=== PATIENT | female | born 1995 | race African-American/Black ===

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

== ENCOUNTER 2017-04-03 23:35 | Emergency (ER) | payer OTHER ==
[2017-04-04] VITALS: BP 107/70; PULSE 98; TEMP 99.8; BMI 24.9
--- NOTE | 2017-04-04 01:52 | PDOC ---
History of Present Illness <Lani Kent - Last Filed: 04/04/17 03:57> - General History Source: Patient, Old Records Exam Limitations: No Limitations - History of Present Illness Initial Comments: 04/04/17 04:24 Patient is a 21 year old female, A1, with a significant past medical history of bipolar disorder, who presents to the ED with complaints of lower abdominal pain and vaginal bleeding that began last night while at home. Patient reports experiencing diffuse lower abdominal pain that she states is a constant sharp pain that is a 10/10 in intensity. She reports vaginal bleeding is an intermittent bleeding that contains clots and is noticeably heavier than her normal menstrual cycles. She reports having recent vaginal full term delivery in December 2016, stating she has returned to her normal menstrual period cycle, stating her last one was in the beginning of March. Patient reports experiencing intermittent episodes of nausea but denies any active vomiting, causing her develop a decreased appetite out of fever of vomiting. She reports currently being sexually active with one partner. Denies chest pain, Sob. Denies vomiting. Denies fevers, chills. Denies dysuria, hematuria, constipation, diarrhea. Denies contact with sick individuals, out of state travelling. Denies any other symptoms. Allergies: None Social history: No smoking. No alcohol. No illicit drugs. Surgical history: None PMD: None <Sourav Monte - Last Filed: 04/04/17 04:25> - General Chief Complaint: Pain, Acute Stated Complaint: STOMACH PAIN Time Seen by Provider: 04/04/17 00:43 Past History - Past Medical History Asthma: Yes (last used albuterol 2 mos ago) Cancer: No Cardiac Disorders: No COPD: No Diabetes: No HTN: No Psychiatric Problems: Yes (BIPOLAR) Seizures: No Thyroid Disease: No - Reproductive History (#): 0 - Immunization History Immunization Up to Date: Yes - Suicide/Smoking/Psychosocial Hx Smoking Status: No Smoking History: Current some day smoker Have you smoked in the past 12 months: No Number of Cigarettes Smoked Daily: 3 Information on smoking cessation initiated: No 'Breaking Loose' booklet given: 08/03/16 Hx Alcohol Use: No Drug/Substance Use Hx: No Substance Use Type: None Hx Substance Use Treatment: No <Lani Kent - Last Filed: 04/04/17 03:57> <Sourav Monte - Last Filed: 04/04/17 04:25> - Past Medical History Allergies/Adverse Reactions: Allergies Allergy/AdvReac Type Severity Reaction Status Date / Time No Known Allergies Allergy Verified 04/03/17 23:56 Home Medications: Ambulatory Orders Nitrofurantoin Monohyd/M-Cryst [Macrobid -] 100 mg PO BID #14 capsule 04/04/17 Review of Systems - Review of Systems Able to Perform ROS?: No Comments:: 04/04/17 04:24 Unable to obtain, patient eloped before attending was able to perform examination. <Sourav Monte - Last Filed: 04/04/17 04:25> *Physical Exam - Vital Signs Last Vital Signs Temp Pulse Resp BP Pulse Ox 99.8 F H 98 H 22 107/70 100 04/03/17 23:57 04/03/17 23:57 04/03/17 23:57 04/03/17 23:57 04/03/17 23:57 <Lani Kent - Last Filed: 04/04/17 03:57> - Vital Signs Last Vital Signs Temp Pulse Resp BP Pulse Ox 99.8 F H 98 H 22 107/70 100 04/03/17 23:57 04/03/17 23:57 04/03/17 23:57 04/03/17 23:57 04/03/17 23:57 - Physical Exam Comments: 04/04/17 04:25 Unable to obtain, patient eloped before attending was able to perform examination. <Sourav Monte - Last Filed: 04/04/17 04:25> ED Treatment Course - LABORATORY CBC & Chemistry Diagram: 04/04/17 02:20 04/04/17 02:20 <Lani Kent - Last Filed: 04/04/17 03:57> - LABORATORY CBC & Chemistry Diagram: 04/04/17 02:20 04/04/17 02:20 - ADDITIONAL ORDERS Additional order review: Laboratory Results 04/04/17 04/04/17 04/04/17 02:20 02:20 01:55 PT with INR 12.80 H INR 1.13 Sodium 138 Potassium 3.9 Chloride 105 Carbon Dioxide 24 Anion Gap 9 BUN 19 H Creatinine 0.8 Creat Clearance w eGFR > 60 Random Glucose 82 Calcium 9.1 Total Bilirubin 1.4 H D AST 20 ALT 38 Alkaline Phosphatase 84 Total Protein 8.1 Albumin 4.1 Urine Color Yellow Urine Appearance Slcloudy Urine pH 5.0 D Ur Specific [place] 1.026 Urine Protein Negative Urine Glucose (UA) Negative Urine Ketones Negative Urine Blood 2+ H Urine Nitrite Positive Urine Bilirubin Negative Urine Urobilinogen Negative Ur Leukocyte Esterase Trace Urine WBC (Auto) 13 Urine RBC (Auto) 29 Ur Epithelial Cells Rare Urine Bacteria Rare Urine Mucus Many Urine HCG, Qual 04/04/17 01:55 PT with INR INR Sodium Potassium Chloride Carbon Dioxide Anion Gap BUN Creatinine Creat Clearance w eGFR Random Glucose Calcium Total Bilirubin AST ALT Alkaline Phosphatase Total Protein Albumin Urine Color Urine Appearance Urine pH Ur Specific [place] Urine Protein Urine Glucose (UA) Urine Ketones Urine Blood Urine Nitrite Urine Bilirubin Urine Urobilinogen Ur Leukocyte Esterase Urine WBC (Auto) Urine RBC (Auto) Ur Epithelial Cells Urine Bacteria Urine Mucus Urine HCG, Qual Negative 04/04/17 02:20 RBC 5.06 D MCV 68.2 L MCHC 31.3 L RDW 20.8 H D MPV 7.7 Neutrophils % 80.3 Lymphocytes % 12.8 Monocytes % 5.0 Eosinophils % 1.4 D Basophils % 0.5 <Sourav Monte - Last Filed: 04/04/17 04:25> *DC/Admit/Observation/Transfer <Lani Kent - Last Filed: 04/04/17 03:57> - Attestations Scribe Attestion: 04/04/17 04:25 Documentation prepared by Sourav Monte, acting as medical sonographer for Lani Kent MD/DO. <Sourav Monte - Last Filed: 04/04/17 04:25> Diagnosis at time of Disposition: Abdominal pain - Discharge Dispostion Disposition: ELOPED Condition at time of disposition: Stable - Prescriptions Prescriptions: Nitrofurantoin Monohyd/M-Cryst [Macrobid -] 100 mg PO BID #14 capsule
[2017-04-04 02:05] LABS: URINE APPEARANCE SLCLOUDY; URINE BILIRUBIN NEGATIVE (NEGATIVE); URINE BLOOD 2+ (NEGATIVE); URINE COLOR YELLOW; URINE GLUCOSE (UA) NEGATIVE (NEGATIVE); URINE KETONE NEGATIVE (NEGATIVE); URINE LEUK ESTERASE TRACE (NEGATIVE); URINE NITRITE POSITIVE (NEGATIVE); URINE PROTEIN NEGATIVE (NEGATIVE); URINE UROBILINOGEN NEGATIVE mg/dL (0.2-1.0)
[2017-04-04 02:11] LABS: EPI CELLS RARE /HPF (FEW); URINE BACTERIA RARE /hpf (NONE SEEN); URINE MUCUS MANY
[2017-04-04 02:36] LABS: BASO % 0.5 % (0-2.0); EOS % 1.4 % (0-4.5); HEMATOCRIT 34.5 % (32.4-45.2); HEMOGLOBIN 10.8 GM/dL (10.7-15.3); LYMPH % 12.8 % (8-40); MCH 21.4 pg (25.7-33.7); MCHC 31.3 g/dl (32.0-36.0); MEAN CELL VOLUME 68.2 fl (80-96); MEAN PLT VOLUME 7.7 fl (7.5-11.1); NEUT % 80.3 % (42.8-82.8); PLATELET COUNT 337 K/MM3 (134-434); RBC 5.06 M/mm3 (3.60-5.2); RDW 20.8 % (11.6-15.6); WHITE BLOOD COUNT 9.5 K/mm3 (4.0-10.0)
[2017-04-04 02:40] LABS: ADD RBC MORPHOLOGY YES
[2017-04-04 02:49] LABS: INR 1.13 (0.82-1.09); PROTHROMBIN TIME (PATIENT) 12.8 SEC (9.98-11.88)
[2017-04-04 02:58] LABS: ALBUMIN 4.1 g/dl (3.4-5.0); ANION GAP 9 (8-16); BILIRUBIN,TOTAL 1.4 mg/dL (0.2-1.0); BLOOD UREA NITROGEN 19 mg/dL (7-18); CALCIUM 9.1 mg/dL (8.5-10.1); CHLORIDE 105 mmol/L (98-107); CO2 24 mmol/L (21-32); CREATININE 0.8 mg/dL (0.55-1.02); GLUCOSE,RANDOM 82 mg/dL (74-106); POTASSIUM 3.9 mmol/L (3.5-5.1); SGOT/AST 20 U/L (15-37); SGPT/ALT 38 U/L (12-78); SODIUM 138 mmol/L (136-145); TOT PROT 8.1 g/dl (6.4-8.2)
[2017-04-04 02:59] LABS: ALK PHOS 84 U/L (45-117)
[2017-04-04 09:22] LABS: ANISOCYTOSIS 1+; PLATELET ESTIMATE ADEQUATE
== END 2017-04-04 03:51 | disposition left against medical advice (07) ==
LOC: JER 23:35
DX: R10.84 Generalized abdominal pain (principal)
CPT/HCPCS: 36415; 80053; 81003; 81015; 84703; 85025; 85610; 99282-25

== ENCOUNTER 2017-07-22 11:12 | Emergency (ER) | payer OTHER ==
[2017-07-22 11:19] VITALS: TEMP 98.1; BMI 23.8
--- NOTE | 2017-07-22 12:00 | PDOC ---
History of Present Illness - General Chief Complaint: Pain, Acute Stated Complaint: ABD PAIN Time Seen by Provider: 07/22/17 12:00 - History of Present Illness Initial Comments: 07/22/17 12:23 Ms. Estes is a 21 yo female w/ no significant pmh who presents for evaluation of 3 day history of abdominal pain. She reports she had initially presented to [facility] for evaluation but left AMA when she was feeling better. She reports the pain has been intermittent over the last few days and she decided to present today when it became unbearable and she also started experiencing minimal vaginal spotting. She describes the pain as waxing and waning and says it is worse in the RLQ. The patient denies chest pain, shortness of breath, headache and dizziness. Denies fever, chills, nausea, vomit, diarrhea and constipation. Denies dysuria, frequency, urgency and hematuria. Allergies: NKDA Past History - Past Medical History Allergies/Adverse Reactions: Allergies Allergy/AdvReac Type Severity Reaction Status Date / Time No Known Allergies Allergy Verified 07/22/17 11:17 Home Medications: Ambulatory Orders Nitrofurantoin Monohyd/M-Cryst [Macrobid -] 100 mg PO BID #14 capsule 04/04/17 Doxycycline Hyclate 100 mg PO BID #28 tablet 07/22/17 Asthma: Yes (last used albuterol 2 mos ago) Cancer: No Cardiac Disorders: No COPD: No Diabetes: No HTN: No Psychiatric Problems: Yes (BIPOLAR) Seizures: No Thyroid Disease: No - Reproductive History (#): 0 - Immunization History Immunization Up to Date: Yes - Suicide/Smoking/Psychosocial Hx Smoking Status: No Smoking History: Never smoked Have you smoked in the past 12 months: No Number of Cigarettes Smoked Daily: 3 Information on smoking cessation initiated: No 'Breaking Loose' booklet given: 08/03/16 Hx Alcohol Use: No Drug/Substance Use Hx: No Substance Use Type: None Hx Substance Use Treatment: No Review of Systems - Review of Systems Comments:: 07/22/17 12:27 GENERAL/CONSTITUTIONAL: No fever or chills. No weakness. HEAD, EYES, EARS, NOSE AND THROAT: No change in vision. No ear pain or discharge. No sore throat. CARDIOVASCULAR: No chest pain or shortness of breath RESPIRATORY: No cough, wheezing, or hemoptysis. GASTROINTESTINAL: +Abdominal pain as described. No nausea, vomiting, diarrhea or constipation. GENITOURINARY: No dysuria, frequency, or change in urination. MUSCULOSKELETAL: No joint or muscle swelling or pain. No neck or back pain. SKIN: No rash NEUROLOGIC: No headache, vertigo, loss of consciousness, or change in strength/ sensation. ENDOCRINE: No increased thirst. No abnormal weight change HEMATOLOGIC/LYMPHATIC: No anemia, easy bleeding, or history of blood clots. ALLERGIC/IMMUNOLOGIC: No hives or skin allergy. *Physical Exam - Vital Signs Last Vital Signs Temp Pulse Resp BP Pulse Ox 98.1 F 100 H 18 122/67 100 07/22/17 11:18 07/22/17 11:18 07/22/17 11:18 07/22/17 11:18 07/22/17 11:18 - Physical Exam Comments: 07/22/17 12:28 GENERAL: Awake, alert, and fully oriented, in no acute distress HEAD: No signs of trauma, normocephalic, atraumatic EYES: PERRLA, EOMI, sclera anicteric, conjunctiva clear ENT: Auricles normal inspection, hearing grossly normal, nares patent, oropharynx clear without exudates. Moist mucosa NECK: Normal ROM, supple, no lymphadenopathy, JVD, or masses LUNGS: No distress, speaks full sentences, clear to auscultation bilaterally HEART: Regular rate and rhythm, normal S1 and S2, no murmurs, rubs or gallops, peripheral pulses normal and equal bilaterally. ABDOMEN: Soft, nontender, normoactive bowel sounds. No guarding, no rebound. No masses EXTREMITIES: Normal inspection, Normal range of motion, no edema. No clubbing or cyanosis. NEUROLOGICAL: Cranial nerves II through XII grossly intact. Normal speech, normal gait, no focal sensorimotor deficits SKIN: Warm, Dry, normal turgor, no rashes or lesions noted. : No CMT, no adnexal tenderness. Scant blood/purulent fluid noted around cervical os. Os closed. ED Treatment Course - LABORATORY CBC & Chemistry Diagram: 07/22/17 13:03 07/22/17 13:03 Medical Decision Making - Medical Decision Making 07/22/17 12:32 Ms. Estes is a 21 yo female w/ pmh as described who presents for evaluation of abdominal pain. History plus exam concerning for septic vs. appendicitis vs. PID. Workup begun with blood drawn for possible pre-op, urine for evaluation of /GC/UTI, and morphine/fluids given for symptomatic relief. 07/22/17 15:31 Patient labs significant for UTI and elevated WBC as below. US negative for acute process. Treating patient empirically for PID and discharging to home. Patient verbalized understanding and agreement and will comply. Laboratory Results - last 24 hr 07/22/17 07/22/17 07/22/17 12:51 12:57 13:03 WBC 12.6 H D RBC 4.61 Hgb 10.9 Hct 34.3 MCV 74.4 L MCH 23.7 L D MCHC 31.8 L RDW 18.3 H Plt Count 320 MPV 7.8 Absolute Neuts (auto) 10.6 Neutrophils % 84.1 H Lymphocytes % 8.0 D Monocytes % 6.8 Eosinophils % 0.7 Basophils % 0.4 Nucleated RBC % 0 PT with INR 12.30 INR 1.09 PTT (Actin FS) 30.2 Sodium Potassium Chloride Carbon Dioxide Anion Gap BUN Creatinine Creat Clearance w eGFR Random Glucose Lactic Acid 0.7 Calcium Total Bilirubin AST ALT Alkaline Phosphatase Total Protein Albumin Urine Color Urine Appearance Urine pH Ur Specific [place] Urine Protein Urine Glucose (UA) Urine Ketones Urine Blood Urine Nitrite Urine Bilirubin Urine Urobilinogen Ur Leukocyte Esterase Urine WBC (Auto) Urine RBC (Auto) Ur Epithelial Cells Urine Mucus Urine HCG, Qual Blood Type Antibody Screen 07/22/17 07/22/17 07/22/17 13:03 13:03 13:03 WBC RBC Hgb Hct MCV MCH MCHC RDW Plt Count MPV Absolute Neuts (auto) Neutrophils % Lymphocytes % Monocytes % Eosinophils % Basophils % Nucleated RBC % PT with INR INR PTT (Actin FS) Sodium 138 Potassium 4.2 Chloride 105 Carbon Dioxide 25 Anion Gap 8 BUN 12 Creatinine 0.8 Creat Clearance w eGFR > 60 Random Glucose 78 Lactic Acid Calcium 9.1 Total Bilirubin 1.1 H D AST 22 ALT 25 Alkaline Phosphatase 68 Total Protein 7.7 Albumin 4.1 Urine Color Yellow Urine Appearance Clear Urine pH 6.0 Ur Specific [place] 1.021 Urine Protein Negative Urine Glucose (UA) Negative Urine Ketones Negative Urine Blood 2+ H Urine Nitrite Negative Urine Bilirubin Negative Urine Urobilinogen 2.0 H Ur Leukocyte Esterase Trace Urine WBC (Auto) 2 Urine RBC (Auto) 23 Ur Epithelial Cells Rare Urine Mucus Rare Urine HCG, Qual Negative Blood Type Antibody Screen 07/22/17 13:03 WBC RBC Hgb Hct MCV MCH MCHC RDW Plt Count MPV Absolute Neuts (auto) Neutrophils % Lymphocytes % Monocytes % Eosinophils % Basophils % Nucleated RBC % PT with INR INR PTT (Actin FS) Sodium Potassium Chloride Carbon Dioxide Anion Gap BUN Creatinine Creat Clearance w eGFR Random Glucose Lactic Acid Calcium Total Bilirubin AST ALT Alkaline Phosphatase Total Protein Albumin Urine Color Urine Appearance Urine pH Ur Specific [place] Urine Protein Urine Glucose (UA) Urine Ketones Urine Blood Urine Nitrite Urine Bilirubin Urine Urobilinogen Ur Leukocyte Esterase Urine WBC (Auto) Urine RBC (Auto) Ur Epithelial Cells Urine Mucus Urine HCG, Qual Blood Type O POSITIVE Antibody Screen Negative *DC/Admit/Observation/Transfer Diagnosis at time of Disposition: PID (acute pelvic inflammatory disease) - Discharge Dispostion Disposition: HOME - Prescriptions Prescriptions: Doxycycline Hyclate 100 mg PO BID #28 tablet - Referrals Referrals: Monica Escobar MD [Primary Care Provider] - - Patient Instructions Printed Discharge Instructions: DI for Pelvic Inflammatory Disease Additional Instructions: Return to ER if any return of pain, fever, chills, or other concerning symptoms. Take all medications as proscribed and follow-up with primary care provider for further evaluation. - Post Discharge Activity
--- NOTE | 2017-07-22 12:13 | PDOC ---
Attending Attestation - HPI HPI: 07/22/17 12:40 The patient is a 21 year old female with a significant past medical history of UTIS who presents to the emergency department for evaluation of abdominal pain. The patient reports intermittent episodes of moderate abdominal pain for 3 days. She reports unbearable abdominal pain today with minimal vaginal bleeding which prompted her to visit the emergency room today. Of note, the patient reports leaving AMA at [facility] yesterday for similar symptoms. The patient denies chest pain, shortness of breath, headache, and dizziness. Denies fevers, chills, nausea, vomiting, diarrhea, and constipation. Denies dysuria, frequency, urgency, and hematuria. Allergies: NKA Social history: No reported cigarette, alcohol, or drug use. PCP: Dr. Escobar ([phone]) <Ravi Serrato - Last Filed: 07/22/17 12:40> - Resident Resident Name: Gaudencio Pham - ED Attending Attestation I have performed the following: I have examined & evaluated the patient, The case was reviewed & discussed with the resident, I agree w/resident's findings & plan, Exceptions are as noted - Physicial Exam PE: GENERAL: Awake, alert, and fully oriented, in no acute distress HEAD: No signs of trauma EYES: PERRLA, EOMI, sclera anicteric, conjunctiva clear ENT: Auricles normal inspection, hearing grossly normal, nares patent, oropharynx clear without exudates. Moist mucosa NECK: Normal ROM, supple, no lymphadenopathy, JVD, or masses LUNGS: Breath sounds equal, clear to auscultation bilaterally. No wheezes, and no crackles HEART: Regular rate and rhythm, normal S1 and S2, no murmurs, rubs or gallops ABDOMEN: Soft, +suprapubic tenderness, normoactive bowel sounds. +Guarding, no rebound. No masses EXTREMITIES: Normal range of motion, no edema. No clubbing or cyanosis. No cords, erythema, or tenderness NEUROLOGICAL: Cranial nerves II through XII grossly intact. Normal speech, normal gait. Motor and sensation intact. SKIN: Warm, Dry, normal turgor, no rashes or lesions noted. - Medical Decision Making Pt with lower abd pain, found to have purulent vaginal discharge. Will treat for PID. GC/Chlam pending. Counseled her to avoid intercourse unless her test is negative or she completes treatment. <Jennifer Sanderson - Last Filed: 07/22/17 15:37> Attestations - Attestations Documentation prepared by Ravi Serrato, acting as medical lab technician for Jennifer Sanderson MD. <Ravi Serrato - Last Filed: 07/22/17 12:40>
[2017-07-22] MEDS ORDERED: SODIUM CHLORIDE 1,000 ML IV STA (12:15)
[2017-07-22] MEDS ORDERED: morphine CARPU-JECT 2 MG/1 ML DISP.SYRIN IVPUSH ONE (12:16)
[2017-07-22] MEDS ORDERED: morphine CARPU-JECT 2 MG/1 ML DISP.SYRIN ONE (12:24)
[2017-07-22] MEDS ORDERED: ACETAMINOPHEN INJECTION 100 ML IVPB ONE (12:47)
[2017-07-22] MEDS ORDERED: ACETAMINOPHEN 1000 MG/100 ML VIAL (NON FORMULARY) IVPB ONE (12:47)
[2017-07-22 13:08] LABS: BASO % 0.4 % (0-2.0); EOS % 0.7 % (0-4.5); HEMATOCRIT 34.3 % (32.4-45.2); HEMOGLOBIN 10.9 GM/dL (10.7-15.3); MCH 23.7 pg (25.7-33.7); MCHC 31.8 g/dl (32.0-36.0); MEAN CELL VOLUME 74.4 fl (80-96); MEAN PLT VOLUME 7.8 fl (7.5-11.1); MONO % 6.8 % (3.8-10.2); NEUT % 84.1 % (42.8-82.8); PLATELET COUNT 320 K/MM3 (134-434); RBC 4.61 M/mm3 (3.60-5.2); RDW 18.3 % (11.6-15.6); WHITE BLOOD COUNT 12.6 K/mm3 (4.0-10.0)
[2017-07-22 13:21] LABS: URINE APPEARANCE CLEAR; URINE BILIRUBIN NEGATIVE (<2.0 mg/dL); URINE BLOOD 2+ (NEGATIVE); URINE COLOR YELLOW; URINE GLUCOSE (UA) NEGATIVE (NEGATIVE); URINE KETONE NEGATIVE (NEGATIVE); URINE LEUK ESTERASE TRACE (NEGATIVE); URINE NITRITE NEGATIVE (NEGATIVE); URINE PROTEIN NEGATIVE (NEGATIVE)
[2017-07-22 13:21] LABS: INR 1.09 (0.82-1.09); PROTHROMBIN TIME (PATIENT) 12.3 SEC (9.7-13.0)
[2017-07-22 13:24] LABS: ACTIVATED PTT 30.2 SECONDS (26.9-34.4)
[2017-07-22 13:30] LABS: EPI CELLS RARE /HPF (FEW); URINE MUCUS RARE
[2017-07-22] MEDS ORDERED: DOXYCYCLINE HYCLATE 100 MG CAPSULE PO ONE ×2 (13:33→14:07)
[2017-07-22 13:37] LABS: ALBUMIN 4.1 g/dl (3.4-5.0); ALK PHOS 68 U/L (45-117); ANION GAP 8 (8-16); BILIRUBIN,TOTAL 1.1 mg/dL (0.2-1.0); BLOOD UREA NITROGEN 12 mg/dL (7-18); CALCIUM 9.1 mg/dL (8.5-10.1); CHLORIDE 105 mmol/L (98-107); CO2 25 mmol/L (21-32); CREATININE 0.8 mg/dL (0.55-1.02); GLUCOSE,RANDOM 78 mg/dL (74-106); POTASSIUM 4.2 mmol/L (3.5-5.1); SGOT/AST 22 U/L (15-37); SGPT/ALT 25 U/L (12-78); SODIUM 138 mmol/L (136-145); TOT PROT 7.7 g/dl (6.4-8.2)
[2017-07-22] MEDS ORDERED: cefTRIAXone SODIUM 1 GM VIAL ONE (14:07)
[2017-07-22 15:36] VITALS: BP 120/65; PULSE 94
== END 2017-07-22 15:43 | disposition home or self-care (01) ==
LOC: JER 11:12
PROC: 3E033NZ Introduction of Analgesics, Hypnotics, Sedatives into Peripheral Vein, Percutaneous Approach (ICD-10-PCS; principal; 2017-07-22)
PROC: 3E02329 Introduction of Other Anti-infective into Muscle, Percutaneous Approach (ICD-10-PCS; 2017-07-22)
PROC: 3E0337Z Introduction of Electrolytic and Water Balance Substance into Peripheral Vein, Percutaneous Approach (ICD-10-PCS; 2017-07-22)
DX: N73.9 Female pelvic inflammatory disease, unspecified (principal)
CPT/HCPCS: 36415; 76830-TC; 80053; 81003; 81015; 83605; 84703; 85025; 85610; 85730; 86850; 86900; 86901; 87086; 87491; 87591; 99283-25; J0131; J7030

== ENCOUNTER 2018-08-25 11:11 | Emergency (ER) | payer OTHER ==
[2018-08-25 11:27] VITALS: BP 110/58; PULSE 16; TEMP 99.5; BMI 23.8
[2018-08-25] MEDS ORDERED: ACETAMINOPHEN 325 MG TABLET (FP) PO ONE (13:21)
[2018-08-25] MEDS ORDERED: DEXAMETHASONE LIQUID 0.5 MG/5 ML 240 ML BULK BOTTLE PO ONE (13:21)
--- NOTE | 2018-08-25 13:23 | PDOC ---
History of Present Illness - General Chief Complaint: Sore Throat Stated Complaint: SORE THROAT Time Seen by Provider: 08/25/18 12:17 History Source: Patient Exam Limitations: No Limitations Past History - Travel Traveled outside of the country in the last 30 days: No Close contact w/someone who was outside of country & ill: No - Past Medical History Allergies/Adverse Reactions: Allergies Allergy/AdvReac Type Severity Reaction Status Date / Time No Known Allergies Allergy Verified 08/25/18 11:27 Home Medications: Ambulatory Orders Ibuprofen 600 mg PO Q6H #30 tablet 08/25/18 Asthma: Yes (last used albuterol 2 mos ago) Cancer: No Cardiac Disorders: No COPD: No Diabetes: No HTN: No Psychiatric Problems: Yes (BIPOLAR) Seizures: No Thyroid Disease: No - Reproductive History (#): 0 - Immunization History Immunization Up to Date: Yes - Suicide/Smoking/Psychosocial Hx Smoking Status: No Smoking History: Never smoked Have you smoked in the past 12 months: No Number of Cigarettes Smoked Daily: 3 'Breaking Loose' booklet given: 08/03/16 Hx Alcohol Use: Yes (OCCASIONALLY) Drug/Substance Use Hx: No Substance Use Type: None Hx Substance Use Treatment: No Review of Systems - Review of Systems Able to Perform ROS?: Yes Comments:: 08/25/18 13:26 CONSTITUTIONAL: Absent: fever, chills, diaphoresis, generalized weakness, malaise, loss of appetite HEENT: Present: sore throat Absent: rhinorrhea, nasal congestion, throat swelling, difficulty swallowing, mouth swelling, ear pain, eye pain, visual Changes RESPIRATORY: Absent: cough, shortness of breath, dyspnea with exertion, orthopnea, wheezing, stridor, hemoptysis MUSCULOSKELETAL: Absent: myalgia, arthralgia, joint swelling SKIN: Absent: rash, itching, pallor NEUROLOGIC: Absent: headache, focal weakness or paresthesias, dizziness, unsteady gait, seizure, mental status changes, bladder or bowel incontinence PSYCHIATRIC: Absent: anxiety, depression, suicidal or homicidal ideation, hallucinations. Is the patient limited Maltese proficient: No *Physical Exam - Vital Signs Last Vital Signs Temp Pulse Resp BP Pulse Ox 99.5 F 16 L 90 H 110/58 L 98 08/25/18 11:24 08/25/18 11:24 08/25/18 11:24 08/25/18 11:24 08/25/18 11:24 - Physical Exam Comments: 08/25/18 13:27 GENERAL: The patient is awake, alert, and fully oriented, in no acute distress. HEAD: Normal with no signs of trauma. EYES: Pupils equal, round and reactive to light, extraocular movements intact, sclera anicteric, conjunctiva clear. HEENT: No nasal congestion or rhinorrhea. No sinus Tenderness. Mucous membranes are moist. (+) tonsillar erythema. No exudate or edema. Petechia noted to the top of the soft palate. Uvula is midline. No TM bulging, dullness or erythema. NECK: Neck is supple. No adenopathy. No meningismus. No stridor. EXTREMITIES: Normal range of motion, no edema. NEUROLOGICAL: Normal speech, normal gait. PSYCH: Normal mood, normal affect. SKIN: Warm, Dry, normal turgor, no rashes or lesions noted. Medical Decision Making - Medical Decision Making 08/25/18 13:28 The patient is a 22-year-old female with no past medical history presents to the ER today with 3 days of sore throat. She states that it hurts to swallow. She also admits to associated nausea. Denies fevers, chills, cough, vomiting, diarrhea, urinary symptoms. A/P: Pharyngitis On exam patient with erythema to the posterior pharynx with petechiae noted to the soft palate. Rapid strep was obtained and is negative. 10 mg of Decadron given for pain We will discharge home with symptomatic relief and PCP follow-up. Most likely a viral pharyngitis I discussed the physical exam findings, ancillary test results and final diagnoses with the patient. I answered all of the patient's questions. The patient was satisfied with the care received and felt comfortable with the discharge plan and treatment plan. The Patient agrees to follow up with the primary care physician/specialist within 24-72 hours. Return precautions were given. *DC/Admit/Observation/Transfer Diagnosis at time of Disposition: Pharyngitis Qualifiers: Pharyngitis/tonsillitis etiology: unspecified etiology Qualified Code(s): J02.9 - Acute pharyngitis, unspecified - Discharge Dispostion Disposition: HOME Condition at time of disposition: Stable Decision to Admit order: No - Prescriptions Prescriptions: Ibuprofen 600 mg PO Q6H #30 tablet - Referrals Referrals: Marino Pizarro MD [Primary Care Provider] - - Patient Instructions Printed Discharge Instructions: DI for Pharyngitis/Tonsillopharyngitis -- Adult Additional Instructions: You have a sore throat or pharyngitis. Rapid strep testing was negative today. You may take Motrin 600 mg every 6 hours as needed for pain. Please do warm water gargles and cough drops to help with your pain. Change your toothbrush when you started feeling better. Follow-up with your primary care doctor. Return to the ER for fever, difficulty breathing, difficulty swallowing, or if you have any changes in your symptoms. - Post Discharge Activity Forms/Work/School Notes: Back to Work
[2018-08-25] MEDS ORDERED: DEXAMETHASONE SOD PHOSPHATE 10 MG/1 ML VIAL ONE (13:24)
== END 2018-08-25 13:28 | disposition home or self-care (01) ==
LOC: JERFT 11:11
DX: J02.9 Acute pharyngitis, unspecified (principal); J45.909 Unspecified asthma, uncomplicated; F31.9 Bipolar disorder, unspecified
CPT/HCPCS: 87070; 87880; 99281-25

== ENCOUNTER 2018-10-04 13:38 | Emergency (ER) | payer OTHER ==
--- NOTE | 2018-10-04 13:51 | PDOC ---
Rapid Medical Evaluation Chief Complaint: Pain Time Seen by Provider: 10/04/18 13:50 Medical Evaluation: Allergies Allergy/AdvReac Type Severity Reaction Status Date / Time No Known Allergies Allergy Verified 08/25/18 11:27 10/04/18 13:51 I have performed a brief in-person evaluation of this patient. The patient presents with a chief complaint of: intermittent cramping lower abd pains with N/v. LMP 08/18. Denies fever, chills Pertinent physical exam findings: A&O x 3 I have ordered the following: cbc,cmp, hcg, UA, Ucx The patient will proceed to the ED for further evaluation. 10/04/18 13:54 Discharge Disposition - Diagnosis Abdominal pain Qualifiers: Abdominal location: unspecified location Qualified Code(s): R10.9 - Unspecified abdominal pain - Discharge Dispostion Condition at time of disposition: Stable Last Admission D/C Date: 12/20/16 - Referrals Referrals: Marino Pizarro MD [Primary Care Provider] - - Patient Instructions - Post Discharge Activity
[2018-10-04 14:23] VITALS: BP 114/78; PULSE 60; TEMP 98.6; BMI 25.0
[2018-10-04] MEDS ORDERED: ONDANSETRON *ODT* 4 MG TABLET SL ONE (14:24)
[2018-10-04] MEDS ORDERED: ONDANSETRON *ODT* 4 MG TABLET ONE (14:55)
[2018-10-04 15:02] LABS: EOS % 1.7 % (0-4.5); HEMATOCRIT 37.6 % (32.4-45.2); HEMOGLOBIN 12.1 GM/dL (10.7-15.3); LYMPH % 40.3 % (8-40); MCH 28.6 pg (25.7-33.7); MCHC 32.2 g/dl (32.0-36.0); MEAN CELL VOLUME 89.1 fl (80-96); MEAN PLT VOLUME 8.5 fl (7.5-11.1); MONO % 6.9 % (3.8-10.2); NEUT % 50.1 % (42.8-82.8); PLATELET COUNT 265 K/MM3 (134-434); RBC 4.22 M/mm3 (3.60-5.2); RDW 17.6 % (11.6-15.6); WHITE BLOOD COUNT 5.1 K/mm3 (4.0-10.0)
[2018-10-04 15:20] LABS: ALBUMIN 3.8 g/dl (3.4-5.0); BLOOD UREA NITROGEN 20.2 mg/dL (7-18); CALCIUM 9.1 mg/dL (8.5-10.1); POTASSIUM 4.4 mmol/L (3.5-5.1)
--- NOTE | 2018-10-04 15:28 | PDOC ---
History of Present Illness - General Chief Complaint: Pain Stated Complaint: ABD. PAIN/ VOMITING Time Seen by Provider: 10/04/18 13:50 History Source: Patient Exam Limitations: No Limitations - History of Present Illness Travel History: No Initial Comments: 10/04/18 15:28 22-year-old female presents to ED with complaints of intermittent nausea for the past week, irregular menses which she states is her baseline, and now with mid suprapubic cramping since this morning. Patient assumed that she was so took a Plan B on Tuesday (5 days ago). Patient any urinary or bowel complaints. Patient denies fever, chills recent travel, but states did have a UTI approximately 2 weeks ago and completed antibiotics which she cannot recall. Timing/Duration: reports: constant Quality: reports: mild, cramping Abdominal Pain Onset Location: reports: suprapubic (mid) Pain Radiation: reports: no radiation Activities at Onset: reports: none Aggravating Factors: improves with: None Alleviating Factors: improves with: None Past History - Travel Traveled outside of the country in the last 30 days: No Close contact w/someone who was outside of country & ill: No - Past Medical History Allergies/Adverse Reactions: Allergies Allergy/AdvReac Type Severity Reaction Status Date / Time No Known Allergies Allergy Verified 10/04/18 13:52 Home Medications: Ambulatory Orders Ibuprofen 600 mg PO Q6H #30 tablet 08/25/18 Ondansetron [Zofran *Odt*] 4 mg SL TID PRN #21 od.tablet 10/04/18 Asthma: Yes (last used albuterol 2 mos ago) Cancer: No Cardiac Disorders: No COPD: No Diabetes: No HTN: No Psychiatric Problems: Yes (BIPOLAR) Seizures: No Thyroid Disease: No - Reproductive History (#): 0 - Immunization History Immunization Up to Date: Yes - Suicide/Smoking/Psychosocial Hx Smoking Status: No Smoking History: Never smoked Have you smoked in the past 12 months: No Number of Cigarettes Smoked Daily: 3 Information on smoking cessation initiated: No 'Breaking Loose' booklet given: 08/03/16 Hx Alcohol Use: No Drug/Substance Use Hx: No Substance Use Type: None Hx Substance Use Treatment: No Patient Lives Alone: No Lives with/in: spouse/SO (boyfriend) Review of Systems - Review of Systems Able to Perform ROS?: Yes Constitutional: No: Symptoms Reported HEENTM: No: Symptoms Reported Respiratory: No: Symptoms reported Cardiac (ROS): No: Symptoms Reported ABD/GI: Yes: Nausea, Abdominal cramping : No: Symptoms Reported Musculoskeletal: No: Symptoms Reported Integumentary: No: Symptoms Reported Neurological: No: Symptoms reported Endocrine: No: Symptoms Reported Hematologic/Lymphatic: No: Symptoms Reported *Physical Exam - Vital Signs Last Vital Signs Temp Pulse Resp BP Pulse Ox 98.6 F 60 18 114/78 100 10/04/18 13:49 10/04/18 13:49 10/04/18 13:49 10/04/18 13:49 10/04/18 13:49 - Physical Exam General Appearance: Yes: Nourished, Appropriately Dressed. No: Apparent Distress HEENT: negative: Pale Conjunctivae Neck: positive: Normal Thyroid Respiratory/Chest: positive: Lungs Clear, Normal Breath Sounds. negative: Respiratory Distress, Accessory Muscle Use Cardiovascular: positive: Regular Rhythm, Regular Rate. negative: Murmur Gastrointestinal/Abdominal: positive: Soft, Tenderness (mild midsuprapubic) Musculoskeletal: negative: CVA Tenderness Extremity: positive: Normal Inspection Integumentary: positive: Normal Color, Warm, Moist Neurologic: positive: Motor Strength 5/5 (ambulatory) ED Treatment Course - LABORATORY CBC & Chemistry Diagram: 10/04/18 14:48 10/04/18 14:33 - ADDITIONAL ORDERS Additional order review: Laboratory Results 10/04/18 14:33 Sodium 143 Potassium 4.4 Chloride 108 H Carbon Dioxide 27 Anion Gap 8 BUN 20.2 H Creatinine 1.0 Est GFR (CKD-EPI)AfAm 93.92 Est GFR (CKD-EPI)NonAf 81.04 Random Glucose 83 Calcium 9.1 Total Bilirubin 1.0 AST 30 ALT 28 Alkaline Phosphatase 66 Total Protein 7.0 Albumin 3.8 10/04/18 14:48 RBC 4.22 MCV 89.1 MCHC 32.2 RDW 17.6 H MPV 8.5 Neutrophils % 50.1 D Lymphocytes % 40.3 H D Monocytes % 6.9 Eosinophils % 1.7 D Basophils % 1.0 - Medications Given in the ED: ED Medications Discontinued Medications Generic Name Dose Route Start Last Admin Trade Name Freq PRN Reason Stop Dose Admin Ondansetron HCl 4 mg 10/04/18 14:24 10/04/18 15:19 Zofran Odt - SL 10/04/18 14:25 4 mg ONCE ONE Administration Medical Decision Making - Medical Decision Making 10/04/18 15:01 CC: intermittent nausea x 1 week, lower abd cramping since this am Exam: mild midsuprapucic tenderness, vss, no cva tenderness Plan: urine, labs, zofran 10/04/18 15:34 Laboratory Tests 10/04/18 10/04/18 14:33 14:48 WBC 5.1 Hgb 12.1 Hct 37.6 Absolute Neuts (auto) 2.6 Lymphocytes % 40.3 H D Sodium 143 Potassium 4.4 Chloride 108 H Carbon Dioxide 27 Anion Gap 8 BUN 20.2 H Creatinine 1.0 Est GFR (CKD-EPI)NonAf 81.04 Random Glucose 83 Calcium 9.1 Total Bilirubin 1.0 AST 30 ALT 28 Alkaline Phosphatase 66 Total Protein 7.0 Albumin 3.8 *DC/Admit/Observation/Transfer Diagnosis at time of Disposition: Nausea Abdominal pain Qualifiers: Abdominal location: unspecified location Qualified Code(s): R10.9 - Unspecified abdominal pain - Discharge Dispostion Disposition: HOME Condition at time of disposition: Stable - Prescriptions Prescriptions: Ondansetron [Zofran *Odt*] 4 mg SL TID PRN #21 od.tablet PRN Reason: Nausea And/Or Vomiting - Referrals Referrals: Marino Pizarro MD [Primary Care Provider] - - Patient Instructions Additional Instructions: Rest, drink lots of fluids: Teas, water, soups Sonia imelda, carbonated beverages for the bubbles May try peppermint teas Avoid heavy , spicy or fatty foods until symptoms have resolved Avoid contact with others until symptoms resolved Lots of handwashing and good hygiene Continue [id number] medications for symptomatic relief Tylenol or Motrin for fever and pain May use Zofran-one tablet dissolved on tongue as needed for nauseousness. May repeat times one every 8 hours Followup with private physician in one to 2 days as needed Return to emergency department for worsened symptoms, fevers, dehydration - Post Discharge Activity Forms/Work/School Notes: Back to Work
[2018-10-04 16:19] LABS: PH,URINE 6.5 (5.0-8.0); URINE APPEARANCE CLEAR; URINE BILIRUBIN NEGATIVE (NEGATIVE); URINE COLOR YELLOW; URINE GLUCOSE (UA) NEGATIVE (NEGATIVE); URINE KETONE TRACE (NEGATIVE); URINE LEUK ESTERASE NEGATIVE (NEGATIVE); URINE NITRITE NEGATIVE (NEGATIVE); URINE PROTEIN NEGATIVE (NEGATIVE)
--- NOTE | 2018-10-04 16:51 | PDOC ---
*Physical Exam - Vital Signs Last Vital Signs Temp Pulse Resp BP Pulse Ox 98.6 F 60 18 114/78 100 10/04/18 13:49 10/04/18 13:49 10/04/18 13:49 10/04/18 13:49 10/04/18 13:49 - Physical Exam General Appearance: Yes: Appropriately Dressed. No: Apparent Distress Neck: positive: Trachea midline. negative: Supple Respiratory/Chest: positive: Lungs Clear, Normal Breath Sounds. negative: Respiratory Distress, Accessory Muscle Use Cardiovascular: positive: Regular Rhythm, Regular Rate, S1, S2. negative: Edema , Murmur Gastrointestinal/Abdominal: positive: Normal Bowel Sounds, Soft. negative: Tender Musculoskeletal: positive: Normal Inspection. negative: CVA Tenderness ED Treatment Course - LABORATORY CBC & Chemistry Diagram: 10/04/18 14:48 10/04/18 14:33 - ADDITIONAL ORDERS Additional order review: Laboratory Results 10/04/18 10/04/18 10/04/18 15:35 15:35 14:33 Sodium 143 Potassium 4.4 Chloride 108 H Carbon Dioxide 27 Anion Gap 8 BUN 20.2 H Creatinine 1.0 Est GFR (CKD-EPI)AfAm 93.92 Est GFR (CKD-EPI)NonAf 81.04 Random Glucose 83 Calcium 9.1 Total Bilirubin 1.0 AST 30 ALT 28 Alkaline Phosphatase 66 Total Protein 7.0 Albumin 3.8 Urine Color Yellow Urine Appearance Clear Urine pH 6.5 Ur Specific [place] 1.037 H Urine Protein Negative Urine Glucose (UA) Negative Urine Ketones Trace H Urine Blood Negative Urine Nitrite Negative Urine Bilirubin Negative Urine Urobilinogen 1.0 Ur Leukocyte Esterase Negative Urine HCG, Qual Negative 10/04/18 14:48 RBC 4.22 MCV 89.1 MCHC 32.2 RDW 17.6 H MPV 8.5 Neutrophils % 50.1 D Lymphocytes % 40.3 H D Monocytes % 6.9 Eosinophils % 1.7 D Basophils % 1.0 - Medications Given in the ED: ED Medications Discontinued Medications Generic Name Dose Route Start Last Admin Trade Name Freq PRN Reason Stop Dose Admin Ondansetron HCl 4 mg 10/04/18 14:24 10/04/18 15:19 Zofran Odt - SL 10/04/18 14:25 4 mg ONCE ONE Administration Progress Note - Progress Note Progress Note: Received sign out from CARLOS Hilton. Briefly this is a 22-year-old woman with 1 week of intermittent nausea and lower abdominal cramping. Patient reports having irregular menses which is her baseline. Patient reports her last menstrual period was in July for that she may be took plan B5 days ago. Patient denies any dysuria, hematuria, fevers, chills, vaginal bleeding and was recently treated for UTI. Blood testing is unremarkable. Urine is pending at time of sign out Medical Decision Making - Medical Decision Making 10/04/18 17:04 Urinalysis with trace ketones but not suggestive of UTI. Urine testing is negative. Patient reports she had negative gonorrhea and chlamydia testing approximately 2 weeks ago with her primary doctor and is refusing testing at this time. Given benign abdominal exam, I will discharge patient home with prescription for Zofran and instructions to follow-up with her primary doctor for reevaluation. 10/04/18 17:06 I discussed the physical exam findings, ancillary test results and final diagnoses with the patient. I answered all of the patient's questions. The patient was satisfied with the care received and felt comfortable with the discharge plan and treatment plan. The patient will call their primary care physician within 24 hours to arrange follow-up and will return to the Emergency Department with any new, persistent or worsening symptoms. *DC/Admit/Observation/Transfer Diagnosis at time of Disposition: Nausea Abdominal pain Qualifiers: Abdominal location: unspecified location Qualified Code(s): R10.9 - Unspecified abdominal pain - Discharge Dispostion Disposition: HOME Condition at time of disposition: Stable Decision to Admit order: No - Prescriptions Prescriptions: Ondansetron [Zofran *Odt*] 4 mg SL TID PRN #21 od.tablet PRN Reason: Nausea And/Or Vomiting - Referrals Referrals: Marino Pizarro MD [Primary Care Provider] - - Patient Instructions Additional Instructions: Rest, drink lots of fluids: Teas, water, soups Sonia imelda, carbonated beverages for the bubbles May try peppermint teas Avoid heavy , spicy or fatty foods until symptoms have resolved Avoid contact with others until symptoms resolved Lots of handwashing and good hygiene Continue nvrh-[id number] medications for symptomatic relief Tylenol or Motrin for fever and pain May use Zofran-one tablet dissolved on tongue as needed for nauseousness. May repeat times one every 8 hours Followup with private physician in one to 2 days as needed Return to emergency department for worsened symptoms, fevers, dehydration - Post Discharge Activity Forms/Work/School Notes: Back to Work
== END 2018-10-04 17:15 | disposition home or self-care (01) ==
LOC: JER 13:38
DX: R10.9 Unspecified abdominal pain (principal); R11.0 Nausea; J45.909 Unspecified asthma, uncomplicated
CPT/HCPCS: 36415; 80053; 81003; 84703; 85025; 87086; 99283-25; Q0162

== ENCOUNTER 2018-11-02 16:13 | Emergency (ER) | payer OTHER ==
[2018-11-02 16:58] VITALS: BP 97/70; PULSE 56; TEMP 98.5; BMI 252.9
--- NOTE | 2018-11-02 16:59 | PDOC ---
Rapid Medical Evaluation Chief Complaint: Pain Time Seen by Provider: 11/02/18 16:55 Medical Evaluation: Allergies Allergy/AdvReac Type Severity Reaction Status Date / Time No Known Allergies Allergy Verified 11/02/18 16:54 11/02/18 16:55 Pt presents for lower abdominal pain for 1 night and admits to nausea. Unsure of status. LMP 09/25/18. Pt is usually regular. Denies urinary symptoms. Exam: discomfort of the suprapubic area, LLQ Orders: urine Pt to proceed to the er for further evaluation Discharge Disposition - Diagnosis Abdominal pain Qualifiers: Abdominal location: lower abdomen, unspecified Qualified Code(s): R10.30 - Lower abdominal pain, unspecified - Referrals Referrals: Marino Pizarro MD [Primary Care Provider] - - Patient Instructions - Post Discharge Activity
--- NOTE | 2018-11-02 17:33 | PDOC ---
History of Present Illness - General Chief Complaint: Pain Stated Complaint: ABD PAIN Time Seen by Provider: 11/02/18 16:55 - History of Present Illness Initial Comments: 11/02/18 17:32 CHIEF COMPLAINT: HISTORY OF PRESENT ILLNESS: No recent travel or sick contacts. PAST MEDICAL HISTORY: Denies past medical history FAMILY HISTORY: Denies SOCIAL HISTORY: Lives at home with ____. Occupation: . Denies tobacco, alcohol, illicit drug use. SURGICAL HISTORY: Denies ALLERGIES: No known drug allergies REVIEW OF SYSTEMS General/Constitutional: Denies fever or chills. Denies weakness, weight change. HEENT: Denies change in vision. Denies ear pain or discharge. Denies sore throat. Cardiovascular: Denies chest pain or shortness of breath. Respiratory: Denies cough, wheezing, or hemoptysis. Gastrointestinal: Denies nausea, vomiting, diarrhea or constipation. Denies rectal bleeding. Genitourinary: Denies dysuria, frequency, or change in urination. Musculoskeletal: Denies joint or muscle swelling or pain. Denies neck or back pain. Skin and breasts: Denies rash or easy bruising. Neurologic: Denies headache, vertigo, loss of consciousness, or loss of sensation. Psychiatric: Denies depression or anxiety. Endocrine: Denies increased thirst. Denies abnormal weight change. Hematologic/Lymphatic: Denies anemia, easy bleeding, or history of blood clots. Allergic/Immunologic: Denies hives or skin allergy. Denies latex allergy. PHYSICAL EXAM General Appearance: Well-appearing, appropriately dressed. No apparent distress , no intoxication. HEENT: EOMI, PERRLA, normal ENT inspection, normal voice, TMs normal, pharynx normal. No conjunctival pallor. No photophobia, scleral icterus. Neck: Supple. Trachea midline. No tenderness, rigidity, carotid bruit, stridor , lymphadenopathy, or thyromegaly. Respiratory/Chest: Lungs CTAB. No shortness of breath, chest tenderness, respiratory distress, accessory muscle use. No crackles, rales, rhonchi, stridor , wheezing, dullness Cardiovascular: RRR. S1, S2. No JVD, murmur, bradycardia, tachycardia. Vascular Pulses: Dorsalis-Pedis (R): 2+, Dorsalis-Pedis (L): 2+ Gastrointestinal/Abdominal: Normal bowel sounds. Abdomen soft, non-distended. No tenderness or rebound tenderness. No organomegaly, pulsatile mass, guarding , hernia, hepatomegaly, splenomegaly. Lymphatic: No adenopathy, tenderness. Musculoskeletal/Extremities: Normal inspection. FROM of all extremities, normal capillary refill. Pelvis Stable. No CVA tenderness. No tenderness to extremities, pedal edema, swelling, erythema or deformity. Integumentary: Appropriate color, dry, warm. No cyanosis, erythema, jaundice or rash Neurologic: manager rental II-XII intact. Fully oriented, alert. Appropriate mood/affect. Motor strength 5/5. No appreciable EOM palsy, facial droop or sensory deficit. Past History - Past Medical History Allergies/Adverse Reactions: Allergies Allergy/AdvReac Type Severity Reaction Status Date / Time No Known Allergies Allergy Verified 11/02/18 16:54 Home Medications: Ambulatory Orders Ibuprofen 600 mg PO Q6H #30 tablet 08/25/18 Ondansetron [Zofran *Odt*] 4 mg SL TID PRN #21 od.tablet 10/04/18 Asthma: Yes (last used albuterol 2 mos ago) Cancer: No Cardiac Disorders: No COPD: No Diabetes: No HTN: No Psychiatric Problems: Yes (BIPOLAR) Seizures: No Thyroid Disease: No - Reproductive History (#): 0 Para: 1 - Immunization History Immunization Up to Date: Yes - Suicide/Smoking/Psychosocial Hx Smoking Status: No Smoking History: Never smoked Have you smoked in the past 12 months: No Number of Cigarettes Smoked Daily: 3 Information on smoking cessation initiated: No 'Breaking Loose' booklet given: 08/03/16 Hx Alcohol Use: No Drug/Substance Use Hx: No Substance Use Type: None Hx Substance Use Treatment: No *Physical Exam - Vital Signs Last Vital Signs Temp Pulse Resp BP Pulse Ox 98.5 F 56 L 17 97/70 100 11/02/18 16:55 11/02/18 16:55 11/02/18 16:55 11/02/18 16:55 11/02/18 16:55 *DC/Admit/Observation/Transfer Diagnosis at time of Disposition: Abdominal pain Qualifiers: Abdominal location: lower abdomen, unspecified Qualified Code(s): R10.30 - Lower abdominal pain, unspecified - Referrals Referrals: Marino Pizarro MD [Primary Care Provider] - - Patient Instructions - Post Discharge Activity
--- NOTE | 2018-11-04 00:17 | PDOC ---
*Physical Exam - Vital Signs Last Vital Signs Temp Pulse Resp BP Pulse Ox 98.5 F 56 L 17 97/70 100 11/02/18 16:55 11/02/18 16:55 11/02/18 16:55 11/02/18 16:55 11/02/18 16:55 - Physical Exam Comments: 11/04/18 00:17 Patient left ER prior to my evaluation. *DC/Admit/Observation/Transfer Diagnosis at time of Disposition: Eloped from emergency department Abdominal pain Qualifiers: Abdominal location: lower abdomen, unspecified Qualified Code(s): R10.30 - Lower abdominal pain, unspecified - Discharge Dispostion Disposition: ELOPED Condition at time of disposition: Unchanged/Unknown - Referrals Referrals: Marino Pizarro MD [Primary Care Provider] - - Patient Instructions - Post Discharge Activity
== END 2018-11-02 17:41 | disposition left against medical advice (07) ==
LOC: SUPCPDRO 16:13 → JER 16:13
DX: R10.30 Lower abdominal pain, unspecified (principal)
CPT/HCPCS: 99281-25

== ENCOUNTER 2018-11-09 14:29 | Emergency (ER) | payer OTHER ==
[2018-11-09 14:38] VITALS: BP 104/54; PULSE 77; TEMP 98.7; BMI 24.5
--- NOTE | 2018-11-09 14:44 | PDOC ---
Rapid Medical Evaluation Chief Complaint: Pain Time Seen by Provider: 11/09/18 14:36 Medical Evaluation: Allergies Allergy/AdvReac Type Severity Reaction Status Date / Time No Known Allergies Allergy Verified 11/02/18 16:54 Vital Signs Temp Pulse Resp BP Pulse Ox 98.7 F 77 17 104/54 L 99 11/09/18 14:35 11/09/18 14:35 11/09/18 14:35 11/09/18 14:35 11/09/18 14:35 11/09/18 14:42 22 year old female c/o LLQ pain, and nausea. patient reports that she has been tag2ksd irregular periods. unsure of PE: patient alert ox3. A: abdominal pain P; ua urine Discharge Disposition - Diagnosis Abdominal pain - Referrals - Patient Instructions - Post Discharge Activity
[2018-11-09] MEDS ORDERED: ONDANSETRON *ODT* 4 MG TABLET SL ONE (15:32)
--- NOTE | 2018-11-09 15:32 | PDOC ---
History of Present Illness - General History Source: Patient Exam Limitations: No Limitations - History of Present Illness Travel History: No Initial Comments: 11/09/18 15:19 Presents the emergency room with complaints of abdominal pain since last night with nausea and one episode of vomiting the same. Patient denies fever, chills, abdominal distention, diarrhea but does state irregular menses on a normal basis. She denies recent travel, recent illness or recent sick contacts. Timing/Duration: reports: constant Quality: reports: mild, cramping Abdominal Pain Onset Location: reports: suprapubic Pain Radiation: reports: no radiation Activities at Onset: reports: none Aggravating Factors: improves with: None Alleviating Factors: improves with: None <Pratima Hilton - Last Filed: 11/09/18 15:27> <Elsi Hinojosa - Last Filed: 11/11/18 20:10> - General Chief Complaint: Pain, Acute Stated Complaint: ABD PAIN Time Seen by Provider: 11/09/18 14:36 Past History - Travel Traveled outside of the country in the last 30 days: No Close contact w/someone who was outside of country & ill: No - Past Medical History Asthma: Yes (last used albuterol 2 mos ago) Cancer: No Cardiac Disorders: No COPD: No Diabetes: No HTN: No Psychiatric Problems: Yes (BIPOLAR) Seizures: No Thyroid Disease: No - Reproductive History (#): 0 Para: 1 - Immunization History Immunization Up to Date: Yes - Psycho Social/Smoking Cessation Hx Smoking Status: No Smoking History: Never smoked Have you smoked in the past 12 months: No Number of Cigarettes Smoked Daily: 3 Information on smoking cessation initiated: No 'Breaking Loose' booklet given: 08/03/16 Hx Alcohol Use: No Drug/Substance Use Hx: No Substance Use Type: None Hx Substance Use Treatment: No Patient Lives Alone: No Lives with/in: spouse/SO <Pratima Hilton - Last Filed: 11/09/18 15:27> <Elsi Hinojosa - Last Filed: 11/11/18 20:10> - Past Medical History Allergies/Adverse Reactions: Allergies Allergy/AdvReac Type Severity Reaction Status Date / Time No Known Allergies Allergy Verified 11/02/18 16:54 Home Medications: Ambulatory Orders Ibuprofen 600 mg PO Q6H #30 tablet 08/25/18 Ondansetron [Zofran *Odt*] 4 mg SL TID PRN #21 od.tablet 10/04/18 Ondansetron [Zofran Odt -] 4 mg SL TID PRN #12 od.tablet 11/09/18 Review of Systems - Review of Systems Able to Perform ROS?: Yes Constitutional: No: Symptoms Reported HEENTM: No: Symptoms Reported Respiratory: No: Symptoms reported Cardiac (ROS): No: Symptoms Reported ABD/GI: Yes: Nausea, Vomiting, Abdominal cramping : No: Symptoms Reported Musculoskeletal: No: Symptoms Reported Integumentary: No: Symptoms Reported Neurological: No: Symptoms reported Endocrine: No: Symptoms Reported Hematologic/Lymphatic: No: Symptoms Reported <rPatima Hilton - Last Filed: 11/09/18 15:27> *Physical Exam - Vital Signs Last Vital Signs Temp Pulse Resp BP Pulse Ox 98.7 F 77 17 104/54 L 99 11/09/18 14:35 11/09/18 14:35 11/09/18 14:35 11/09/18 14:35 11/09/18 14:35 - Physical Exam General Appearance: Yes: Nourished, Appropriately Dressed. No: Apparent Distress Cardiovascular: positive: Regular Rhythm, Regular Rate. negative: Murmur Gastrointestinal/Abdominal: positive: Soft, Tenderness (mild lt lower suprapubic tenderness) Extremity: positive: Normal Inspection Integumentary: positive: Normal Color, Warm, Moist Neurologic: positive: Motor Strength 5/5 (ambulatory) <Pratima Hilton - Last Filed: 11/09/18 15:27> - Vital Signs Last Vital Signs Temp Pulse Resp BP Pulse Ox 98.7 F 77 17 104/54 L 99 11/09/18 14:35 11/09/18 14:35 11/09/18 14:35 11/09/18 14:35 11/09/18 14:35 <Elsi Hinojosa - Last Filed: 11/11/18 20:10> ED Treatment Course - LABORATORY CBC & Chemistry Diagram: 11/09/18 17:28 11/09/18 17:28 - ADDITIONAL ORDERS Additional order review: Laboratory Results 11/09/18 11/09/18 15:32 15:32 Urine Color Yellow Urine Appearance Clear Urine pH 6.0 Ur Specific [place] 1.026 Urine Protein Negative Urine Glucose (UA) Negative Urine Ketones Negative Urine Blood Negative Urine Nitrite Negative Urine Bilirubin Negative Urine Urobilinogen 1.0 Ur Leukocyte Esterase Negative Urine HCG, Qual Positive 11/09/18 17:28 RBC 4.35 MCV 89.1 MCHC 32.1 RDW 16.9 H MPV 7.8 Neutrophils % 51.3 Lymphocytes % 38.7 Monocytes % 7.3 Eosinophils % 1.3 Basophils % 1.4 - Medications Given in the ED: ED Medications Discontinued Medications Generic Name Dose Route Start Last Admin Trade Name Freq PRN Reason Stop Dose Admin Ondansetron HCl 4 mg 11/09/18 15:32 11/09/18 15:20 Zofran Odt - SL 11/09/18 15:33 4 mg ONCE ONE Administration <Elsi Hinojosa - Last Filed: 11/11/18 20:10> Medical Decision Making - Medical Decision Making 11/09/18 15:34 CC: llq cramping since last night with 1 episode of nausea/vomiting this am. Pt states menses is normally irregular and LMP 8/11 Exam: mild LL suprapubic tenderness, vss'Plan: ua. upreg, <Pratima Hilton - Last Filed: 11/09/18 15:27> - Medical Decision Making The patient was seen and evaluated in conjunction with midlevel provider under my direct supervision, ancillary studies were reviewed. I agree with the plan as outlined ACCOUNTS RECEIVABLE PROCESSOR Lida HPI, workup/dispo as outlined. VS reviewed, wnl. anticipate discharge, pcp followup, return precautions 11/09/18 17:50 <Elsi Hinojosa - Last Filed: 11/11/18 20:10> Discharge <Pratima Hilton - Last Filed: 11/09/18 15:27> - Discharge Information Problems reviewed: Yes <Elsi Hinojosa - Last Filed: 11/11/18 20:10> - Discharge Information Clinical Impression/Diagnosis: Abdominal pain affecting Condition: Good Disposition: HOME - Additional Discharge Information Prescriptions: Ondansetron [Zofran Odt -] 4 mg SL TID PRN #12 od.tablet PRN Reason: Nausea - Follow up/Referral Referrals: Marino Pizarro MD [Primary Care Provider] - - Patient Discharge Instructions Additional Instructions: Take your vitamins. Keep well-hydrated. Make an appointment with your ADVERTISING ACCOUNT REPRESENTATIVE for reevaluation. Return to the emergency department immediately for severe pain, vaginal bleeding that requires more than 2 pads per hour or for any other symptoms. Thank you very much for choosing us to provide your emergent health care needs. - Post Discharge Activity
[2018-11-09] MEDS ORDERED: ONDANSETRON *ODT* 4 MG TABLET ONE (15:50)
[2018-11-09 16:33] LABS: URINE APPEARANCE CLEAR; URINE BILIRUBIN NEGATIVE (NEGATIVE); URINE COLOR YELLOW; URINE GLUCOSE (UA) NEGATIVE (NEGATIVE); URINE KETONE NEGATIVE (NEGATIVE); URINE LEUK ESTERASE NEGATIVE (NEGATIVE); URINE NITRITE NEGATIVE (NEGATIVE); URINE PROTEIN NEGATIVE (NEGATIVE)
--- NOTE | 2018-11-09 16:43 | PDOC ---
*Physical Exam - Vital Signs Last Vital Signs Temp Pulse Resp BP Pulse Ox 98.7 F 77 17 104/54 L 99 11/09/18 14:35 11/09/18 14:35 11/09/18 14:35 11/09/18 14:35 11/09/18 14:35 - Physical Exam General Appearance: Yes: Appropriately Dressed. No: Apparent Distress Gastrointestinal/Abdominal: positive: Normal Bowel Sounds, Tender (mild suprapubic), Soft Musculoskeletal: positive: Normal Inspection. negative: CVA Tenderness ED Treatment Course - LABORATORY CBC & Chemistry Diagram: 11/09/18 17:28 11/09/18 17:28 - ADDITIONAL ORDERS Additional order review: Laboratory Results 11/09/18 15:32 Urine Color Yellow Urine Appearance Clear Urine pH 6.0 Ur Specific [place] 1.026 Urine Protein Negative Urine Glucose (UA) Negative Urine Ketones Negative Urine Blood Negative Urine Nitrite Negative Urine Bilirubin Negative Urine Urobilinogen 1.0 Ur Leukocyte Esterase Negative - Medications Given in the ED: ED Medications Discontinued Medications Generic Name Dose Route Start Last Admin Trade Name Vaughn PRN Reason Stop Dose Admin Ondansetron HCl 4 mg 11/09/18 15:32 11/09/18 15:20 Zofran Odt - SL 11/09/18 15:33 4 mg ONCE ONE Administration ED Progress Note - Progress Note Progress Note: 11/09/18 16:43 Received signout from nurse practitioner Lida. Briefly this a 22-year-old woman presents emergency department for evaluation of mild suprapubic pain starting last night with nausea and one episode of vomiting. Patient with irregular menses. Urine is pending. Medical Decision Making - Medical Decision Making 11/09/18 17:17 A/P: 22-year-old woman with suprapubic pain and nausea Urinalysis is not suggestive of infection Urine testing is positive. Transvaginal ultrasound Laboratory testing included type and screen and beta hCG. 11/09/18 19:05 Ultrasound as read by Dr. Beck: Single live intrauterine with estimated sonographic gestational age 6 weeks 1 day. No heart rate likely due to pole size and early gestation. Close follow-up is recommended. Hypoechoic density in the left ovary measuring 2.2 x 1.3 cm likely representing hemorrhagic corpus luteum cyst. Rh+ Beta hCG 14,706. I will discharge the patient home to follow-up with her SENIOR NET DEVELOPER ARCHITECT for continued evaluation of . I discussed the physical exam findings, ancillary test results and final diagnoses with the patient. I answered all of the patient's questions. The patient was satisfied with the care received and felt comfortable with the discharge plan and treatment plan. The patient will call their primary care physician within 24 hours to arrange follow-up and will return to the Emergency Department with any new, persistent or worsening symptoms. Portions of this note have been documented using voice recognition software. As a result, errors may occur in the application support developer process. Effort has been made to correct all grammatical and application support developer error, but some may have been missed. Discharge - Discharge Information Problems reviewed: Yes Clinical Impression/Diagnosis: Abdominal pain affecting Condition: Fair Disposition: HOME - Admission No - Additional Discharge Information Prescriptions: Ondansetron [Zofran Odt -] 4 mg SL TID PRN #12 od.tablet PRN Reason: Nausea - Follow up/Referral Referrals: Marino Pizarro MD [Primary Care Provider] - - Patient Discharge Instructions Additional Instructions: Take your vitamins. Keep well-hydrated. Make an appointment with your NIGHT SUPERVISOR for reevaluation. Return to the emergency department immediately for severe pain, vaginal bleeding that requires more than 2 pads per hour or for any other symptoms. Thank you very much for choosing us to provide your emergent health care needs. - Post Discharge Activity
[2018-11-09 17:39] LABS: BASO % 1.4 % (0-2.0); EOS % 1.3 % (0-4.5); HEMATOCRIT 38.8 % (32.4-45.2); HEMOGLOBIN 12.5 GM/dL (10.7-15.3); LYMPH % 38.7 % (8-40); MCH 28.6 pg (25.7-33.7); MCHC 32.1 g/dl (32.0-36.0); MEAN CELL VOLUME 89.1 fl (80-96); MEAN PLT VOLUME 7.8 fl (7.5-11.1); MONO % 7.3 % (3.8-10.2); NEUT % 51.3 % (42.8-82.8); PLATELET COUNT 261 K/MM3 (134-434); RBC 4.35 M/mm3 (3.60-5.2); RDW 16.9 % (11.6-15.6)
[2018-11-09 18:08] LABS: BLOOD UREA NITROGEN 13.7 mg/dL (7-18); CALCIUM 8.8 mg/dL (8.5-10.1); CREATININE 0.8 mg/dL (0.55-1.3); POTASSIUM 4.2 mmol/L (3.5-5.1)
== END 2018-11-09 19:07 | disposition home or self-care (01) ==
LOC: JER 14:29 → SUPCPDRO 14:29 → JER 19:07
DX: O26.891 Other specified pregnancy related conditions, first trimester (principal); O34.81 Maternal care for other abnormalities of pelvic organs, first trimester; N83.12 Corpus luteum cyst of left ovary; Z3A.01 Less than 8 weeks gestation of pregnancy
CPT/HCPCS: 36415; 76817-TC; 80048; 81003; 84702; 84703; 85025; 86850; 86900; 86901; 99282-25; Q0162

== ENCOUNTER 2019-01-21 16:47 | Emergency (ER) | payer OTHER ==
[2019-01-21 16:52] VITALS: BMI 21.9
--- NOTE | 2019-01-21 17:11 | PDOC ---
History of Present Illness - General Chief Complaint: Pain Stated Complaint: 4 MONTHS /ABD/PAIN History Source: Patient - History of Present Illness Initial Comments: 01/21/19 17:02 Patient is a 23-year-old female LMP 09/24/18, who has OB care with Dr. Vargas has had first OB sono on 12/25/18 at 13-week (patient had songram pictures on hand), PMHX here with complaints of generalized abdominal pain since this morning. States that she has been having some nausea and vomiting today and vomited x2. Has not had much to drink all day. States she is currently not nauseous. States pain is generalized sharp stabbing, is constant 10/10, with no aggravating or alleviating factors. Denies vaginal bleeding, leakage of fluid or diarrhea. No sick contacts, no food contacts. PMD: Dr. Vargas PMHX: As above PSOCHX: neg cig, etoh, drug ALL: NKDA GENERAL/CONSTITUTIONAL: [No fever or chills. No weakness. No weight change.] HEAD, EYES, EARS, NOSE AND THROAT: [No change in vision. No ear pain or discharge. No sore throat.] CARDIOVASCULAR: [No chest pain or shortness of breath.] RESPIRATORY: [No cough, wheezing, or hemoptysis.] GASTROINTESTINAL: [(+) nausea, vomiting, (-) diarrhea or constipation. No rectal bleeding.] GENITOURINARY: [No dysuria, frequency, or change in urination.] MUSCULOSKELETAL: [No joint or muscle swelling or pain. No neck or back pain.] SKIN AND BREASTS: [No rash or easy bruising.] NEUROLOGIC: [No headache, vertigo, loss of consciousness, or loss of sensation.] PSYCHIATRIC: [No depression or anxiety.] ENDOCRINE: [No increased thirst. No abnormal weight change.] HEMATOLOGIC/LYMPHATIC: [No anemia, easy bleeding, or history of blood clots.] ALLERGIC/IMMUNOLOGIC: [No hives or skin allergy. No latex allergy.] GENERAL: [The patient is awake, alert, and fully oriented, in acute distress.] HEAD: [Normal with no signs of trauma.] EYES: [Pupils equal, round and reactive to light, extraocular movements intact, sclera anicteric, conjunctiva clear.] ENT: [Ears normal, nares patent, oropharynx clear without exudates. Moist mucous membranes.] NECK: [Normal range of motion, supple without lymphadenopathy, JVD, or masses.] LUNGS: [Breath sounds equal, clear to auscultation bilaterally. No wheezes, and no crackles.] HEART: [Regular rate and rhythm, normal S1 and S2 without murmur, rub.] ABDOMEN: [Soft, (+) generalized tenderness, normoactive bowel sounds. No guarding, no rebound. No masses.] PELVIC; refused pelvic exam EXTREMITIES: [Normal range of motion, no edema. No clubbing or cyanosis. No cords, erythema, or tenderness.] NEUROLOGICAL: [Cranial nerves II through XII grossly intact. Normal speech, normal gait.] PSYCH: [Normal mood, normal affect.] SKIN: [Warm, Dry, normal turgor, no rashes or lesions noted.] Past History - Past Medical History Allergies/Adverse Reactions: Allergies Allergy/AdvReac Type Severity Reaction Status Date / Time No Known Allergies Allergy Verified 01/21/19 16:52 Home Medications: Ambulatory Orders Ibuprofen 600 mg PO Q6H #30 tablet 08/25/18 Ondansetron [Zofran *Odt*] 4 mg SL TID PRN #21 od.tablet 10/04/18 Ondansetron [Zofran Odt -] 4 mg SL TID PRN #12 od.tablet 11/09/18 Asthma: Yes (last used albuterol 2 mos ago) Cancer: No Cardiac Disorders: No COPD: No Diabetes: No HTN: No Psychiatric Problems: Yes (BIPOLAR) Seizures: No Thyroid Disease: No - Reproductive History (#): 0 Para: 1 - Immunization History Immunization Up to Date: Yes - Psycho Social/Smoking Cessation Hx Smoking Status: No Smoking History: Never smoked Have you smoked in the past 12 months: No Number of Cigarettes Smoked Daily: 3 'Breaking Loose' booklet given: 08/03/16 Hx Alcohol Use: No Drug/Substance Use Hx: No Substance Use Type: None Hx Substance Use Treatment: No *Physical Exam - Vital Signs Last Vital Signs Temp Pulse Resp BP Pulse Ox 97.9 F 95 H 18 118/64 99 01/21/19 16:49 01/21/19 16:49 01/21/19 16:49 01/21/19 16:49 01/21/19 16:49 ED Treatment Course - LABORATORY CBC & Chemistry Diagram: 01/21/19 17:30 01/21/19 17:30 Medical Decision Making - Medical Decision Making 01/21/19 17:02 Patient is a 23-year-old female LMP 09/24/18, who has OB care with Dr. Vargas has had first OB sono on 12/25/18 at 13-week (patient had songram pictures on hand), PMHX here with complaints of generalized abdominal pain since this morning. States that she has been having some nausea and vomiting today and vomited x2. Has not had much to drink all day. States pain is generalized sharp stabbing, is constant 10/10, with no aggravating or alleviating factors. Denies vaginal bleeding, leakage of fluid or diarrhea. No sick contacts, no food contacts. DDX: UTI, pain in , dehydration Labs Bedside ultrasound. IV fluids, Tylenol IV. Reassess. Bedside ultrasound done notes positive FH at rate 152, positive movement 01/21/19 19:35 Patient is tolerating p.o., states she feels improved her pain is resolved. I discussed the physical exam findings, ancillary test results and final diagnoses with the patient. I answered all of the patient's questions. The patient was satisfied with the care received and felt comfortable with the discharge plan and treatment plan. The Patient agrees to follow up with the primary care physician within 24-72 hours. Discharge - Discharge Information Problems reviewed: Yes Clinical Impression/Diagnosis: Abdominal pain affecting , antepartum, Dehydration Condition: Stable Disposition: HOME - Follow up/Referral Referrals: Monica Escobar CNM [Primary Care Provider] - - Patient Discharge Instructions Patient Printed Discharge Instructions: DI for Dehydration -- Adult, DI for Abdominal Pain -- Early Additional Instructions: Your Discharge Instructions: You must call primary care physician within 24 hours to arrange follow-up. Return to the Emergency Department with any new, persistent or worsening symptoms, for fever, chills, SOB, dizziness or any other concerning changes that may occur. Continue to hydrate drink lots of fluids. - Post Discharge Activity
[2019-01-21] MEDS ORDERED: SODIUM CHLORIDE 0.9% 500 ML INFUS.BAG IV ONE (17:18)
[2019-01-21] MEDS ORDERED: ACETAMINOPHEN 1000 MG/100 ML VIAL (NON FORMULARY) IVPB ONE (17:18)
[2019-01-21] MEDS ORDERED: ACETAMINOPHEN INJECTION 100 ML IVPB ONE (17:27)
[2019-01-21 17:48] LABS: BASO % 0.3 % (0-2.0); EOS % 0.6 % (0-4.5); HEMATOCRIT 37.7 % (32.4-45.2); HEMOGLOBIN 12.4 GM/dL (10.7-15.3); LYMPH % 10.6 % (8-40); MCH 30.8 pg (25.7-33.7); MEAN CELL VOLUME 93.3 fl (80-96); MEAN PLT VOLUME 8.3 fl (7.5-11.1); NEUT % 81.5 % (42.8-82.8); PLATELET COUNT 260 K/MM3 (134-434); RBC 4.04 M/mm3 (3.60-5.2); RDW 14.5 % (11.6-15.6); WHITE BLOOD COUNT 10.2 K/mm3 (4.0-10.0)
[2019-01-21 17:51] LABS: EPI CELLS 5.5 /HPF (0-5/HPF); HYALINE CASTS 2 /lpf (0-8); PH,URINE 8.5 (5.0-8.0); URINE APPEARANCE CLEAR; URINE BACTERIA 115.3 /hpf (NEGATIVE); URINE BILIRUBIN NEGATIVE (NEGATIVE); URINE COLOR YELLOW; URINE GLUCOSE (UA) NEGATIVE (NEGATIVE); URINE KETONE NEGATIVE (NEGATIVE); URINE LEUK ESTERASE TRACE (NEGATIVE); URINE NITRITE NEGATIVE (NEGATIVE); URINE PROTEIN NEGATIVE (NEGATIVE); URINE RBC 3 /hpf (0-4); URINE WBC 9 /hpf (0-5)
[2019-01-21 18:14] LABS: ALBUMIN 3.5 g/dl (3.4-5.0); BILIRUBIN,TOTAL 0.9 mg/dL (0.2-1); BLOOD UREA NITROGEN 11.6 mg/dL (7-18); CALCIUM 8.9 mg/dL (8.5-10.1); CREATININE 0.6 mg/dL (0.55-1.3); POTASSIUM 4.2 mmol/L (3.5-5.1); TOT PROT 7.1 g/dl (6.4-8.2)
[2019-01-21 20:08] VITALS: BP 120/57; PULSE 85; TEMP 98.4
== END 2019-01-21 20:07 | disposition home or self-care (01) ==
LOC: JER 16:47
PROC: 3E033NZ Introduction of Analgesics, Hypnotics, Sedatives into Peripheral Vein, Percutaneous Approach (ICD-10-PCS; principal; 2019-01-21)
DX: O26.892 Other specified pregnancy related conditions, second trimester (principal); E86.0 Dehydration; J45.909 Unspecified asthma, uncomplicated; Z72.0 Tobacco use; F31.9 Bipolar disorder, unspecified
CPT/HCPCS: 36415; 80053; 81003; 82150; 85025; 87086; 87186; 99282-25; J0131

== ENCOUNTER 2019-04-13 11:08 | Emergency (ER) | payer OTHER ==
[2019-04-13 11:15] VITALS: BMI 19.5
--- NOTE | 2019-04-13 11:19 | PDOC ---
Rapid Medical Evaluation Chief Complaint: Labor Assessment Time Seen by Provider: 04/13/19 11:16 Medical Evaluation: Allergies Allergy/AdvReac Type Severity Reaction Status Date / Time No Known Allergies Allergy Verified 04/13/19 11:10 Vital Signs Temp Pulse Resp BP Pulse Ox 98.6 F 118 H 22 H 99/56 L 99 04/13/19 11:14 04/13/19 11:14 04/13/19 11:14 04/13/19 11:14 04/13/19 11:14 04/13/19 11:17 CC: Abdominal pain; 28 weeks gestation 2 para 1; cuff knitter-Sam. Patient reports lower abdominal cramping radiating to her lower back which she reports comes in waves. She denies any vaginal bleeding, vaginal discharge, hematuria, dysuria, rectal bleeding. Physical exam reveals gravid abdomen. Patient to go to labor and delivery for obstetric assessment. Discharge Disposition - Diagnosis Second trimester - Referrals - Patient Instructions - Post Discharge Activity
[2019-04-13] MEDS ORDERED: SODIUM CHLORIDE 1,000 ML IV SCH (13:00)
--- NOTE | 2019-04-13 15:23 | PN ---
Ante-Partal Exam - Subjective Subjective: Patient presenting for abdominal and back pain. She denies LOF, VB, and no recent sexual intercourse. She is an external OBGYN patient and no records available. She denies any issues with current and reports to be 28wks in gestation. Patient denies medical problems. Vital Signs: Vital Signs Temperature 98.6 F 04/13/19 11:14 Pulse Rate 118 H 04/13/19 11:14 Respiratory Rate 22 H 04/13/19 11:14 Blood Pressure 99/56 L 04/13/19 11:14 O2 Sat by Pulse Oximetry (%) 99 04/13/19 11:14 Bleeding: No Headache: No Visual changes: No Right upper quadrant pain: No - Contractions Contractions: No Regularity: Irritability Intensity: Mild Monitor Mode: External - Exam during Labor Heart Rate: 160 Variability: Minimal, Moderate Monitor Accelerations: Absent Monitor Decelerations: None Exam: Vaginal (posterior) Dilatation (cm): 0.5 Effacement (%): 0 Amniotic Membrane Status: Intact Presentation: Vertex Station: -3 - Assessment/Plan Assessment/Plan: 23 y/o @ 28+wks, no available records despite been requested, FHT is appropriate for gestational age, MFM sono reviewed, patient in stable condition requesting to eat, no evidence of active PTL. Patient has been observed for a extended period of time. Exam suggestive of sergio infection. Patient counseled regarding antepartum/PTL precautions -Tx for sergio -IV fluids -F/U labs -Plan for D/c with short follow up at her OBGYN -return PRN
[2019-04-13] MEDS ORDERED: ACETAMINOPHEN 325 MG TABLET (FP) ONE (15:39)
[2019-04-13 15:44] LABS: BASO % 0.4 % (0-2.0); HEMATOCRIT 29.5 % (32.4-45.2); HEMOGLOBIN 9.9 GM/dL (10.7-15.3); LYMPH % 5.1 % (8-40); MCH 30.7 pg (25.7-33.7); MCHC 33.4 g/dl (32.0-36.0); MEAN CELL VOLUME 92.1 fl (80-96); MEAN PLT VOLUME 7.9 fl (7.5-11.1); MONO % 10.1 % (3.8-10.2); NEUT % 84.4 % (42.8-82.8); PLATELET COUNT 199 K/MM3 (134-434); RBC 3.21 M/mm3 (3.60-5.2); RDW 13.3 % (11.6-15.6); WHITE BLOOD COUNT 10.1 K/mm3 (4.0-10.0)
[2019-04-13] MEDS ORDERED: ACETAMINOPHEN 325 MG TABLET (FP) PO ONE (16:00)
[2019-04-13 16:21] LABS: ALBUMIN 2.7 g/dl (3.4-5.0); BILIRUBIN,TOTAL 0.9 mg/dL (0.2-1); BLOOD UREA NITROGEN 11.4 mg/dL (7-18); CALCIUM 7.9 mg/dL (8.5-10.1); CREATININE 0.6 mg/dL (0.55-1.3); POTASSIUM 3.7 mmol/L (3.5-5.1); TOT PROT 6.2 g/dl (6.4-8.2)
[2019-04-13 16:56] LABS: PH,URINE 5.5 (5.0-8.0); URINE APPEARANCE CLEAR; URINE BILIRUBIN NEGATIVE (NEGATIVE); URINE COLOR DK YELLOW; URINE GLUCOSE (UA) NEGATIVE (NEGATIVE); URINE KETONE 3+ (NEGATIVE); URINE LEUK ESTERASE NEGATIVE (NEGATIVE); URINE NITRITE NEGATIVE (NEGATIVE); URINE PROTEIN NEGATIVE (NEGATIVE)
[2019-04-13 17:05] VITALS: BP 97/34; PULSE 113; TEMP 99.2
[2019-04-13 17:10] LABS: COCAINE, UR NEGATIVE ng/ml (CUTOFF=300); METHADONE, UR NEGATIVE ng/ml (CUTOFF=300); OPIATES, URI NEGATIVE ng/ml (CUTOFF=300); PHENCYCLIDINE,URINE NEGATIVE ng/ml (CUTOFF=25); URINE AMPHETAMINES NEGATIVE ng/ml (CUTOFF=500); URINE BARBITURATES NEGATIVE ng/ml (CUTOFF=200); URINE BENZODIAZEPINES NEGATIVE ng/ml (CUTOFF=200)
== END 2019-04-13 17:40 | disposition home or self-care (01) ==
LOC: JER 11:08
DX: O26.893 Other specified pregnancy related conditions, third trimester (principal); Z3A.28 28 weeks gestation of pregnancy
CPT/HCPCS: 36415; 80053; 80307; 81003; 85025; 86850; 86900; 86901; 99283-25; J7030

== ENCOUNTER 2019-12-17 11:55 | Emergency (ER) | payer OTHER ==
[2019-12-17 12:04] VITALS: BMI 19.2
[2019-12-17 12:05] VITALS: TEMP 97.8
[2019-12-17] MEDS ORDERED: SODIUM CHLORIDE 1,000 ML IV STA (12:05)
[2019-12-17] MEDS ORDERED: ONDANSETRON 4 MG/2 ML VIAL IVPUSH ONE (12:05)
--- NOTE | 2019-12-17 12:05 | PDOC ---
Rapid Medical Evaluation Time Seen by Provider: 12/17/19 12:01 Medical Evaluation: Allergies Allergy/AdvReac Type Severity Reaction Status Date / Time No Known Allergies Allergy Verified 12/17/19 12:00 12/17/19 12:01 CC: + left sided chest tightness, decreased appetite and vomiting, 9 weeks , no dysuria, no fever, no SOB or cough Exam: vss, tenderness to epigastric region and left chest Plan: urine, labs, ekg Discharge Disposition - Diagnosis Vomiting - Referrals - Patient Instructions - Post Discharge Activity
[2019-12-17] MEDS ORDERED: FAMOTIDINE 20 MG/50 ML IVPB 20 MG/50 ML MG IVPB ONE ×2 (12:44→12:56)
[2019-12-17 12:47] LABS: BASO % 0.9 % (0-2.0); EOS % 1.3 % (0-4.5); HEMATOCRIT 36.2 % (32.4-45.2); HEMOGLOBIN 11.7 GM/dL (10.7-15.3); LYMPH % 43.7 % (8-40); MCH 27.4 pg (25.7-33.7); MCHC 32.3 g/dl (32.0-36.0); MEAN CELL VOLUME 84.8 fl (80-96); MEAN PLT VOLUME 8.3 fl (7.5-11.1); MONO % 7.2 % (3.8-10.2); NEUT % 46.9 % (42.8-82.8); PLATELET COUNT 266 K/MM3 (134-434); RBC 4.27 M/mm3 (3.60-5.2); RDW 19.2 % (11.6-15.6); WHITE BLOOD COUNT 5.7 K/mm3 (4.0-10.0)
--- NOTE | 2019-12-17 12:51 | PDOC ---
History of Present Illness - General Chief Complaint: Chest Pain Stated Complaint: VOMITING/CHEST PAIN Time Seen by Provider: 12/17/19 12:01 History Source: Patient Exam Limitations: No Limitations - History of Present Illness Initial Comments: 12/17/19 12:47 Patient is a 24-year-old female who is 9 weeks gestation, , who presents to the ED with complaint of epigastric abdominal pain, persistent vomiting for the last 4 days and chest pain. She states she has vomited roughly 4 times daily. She is able to keep down fluids but is having difficulty keeping down solid food . She denies any fevers or chills. She denies any known Covid contacts. She denies any shortness of breath. The patient states she has a sour feeling in her epigastrium which radiates into her chest. She has already started care but she is unable to remember the name of her provider. She denies any past medical history or allergies to medications. She has not taken anything for her symptoms. The patient denies any vaginal bleeding or lower abdominal cramping. Past History - Medical History Allergies/Adverse Reactions: Allergies Allergy/AdvReac Type Severity Reaction Status Date / Time No Known Allergies Allergy Verified 12/17/19 12:00 Home Medications: Ambulatory Orders Clotrimazole 45 gm VG DAILY 7 Days #7 cream.appl 04/13/19 95/Iron Fum/Folic/Dha [ + Dha Combo Pack] 1 each PO DAILY 04/13/19 Asthma: Yes (last used albuterol 2 mos ago) Cancer: No Cardiac Disorders: No COPD: No Diabetes: No HTN: No Psychiatric Problems: Yes (BIPOLAR) Seizures: No Thyroid Disease: No - Reproductive History Is Patient Now?: Yes (#): 3 Para: 2 Cervical CA: No Dysfunctional Uterine Bleeding: No Ectopic : No Endometrial CA: No Polycystic Ovaries: No Tubal Ligation: No Spontaneous : 0 - Immunization History Immunization Up to Date: Yes - Psycho-Social/Smoking History Smoking Status: No Smoking History: Never smoked Have you smoked in the past 12 months: No Number of Cigarettes Smoked Daily: 3 'Breaking Loose' booklet given: 08/03/16 - Substance Abuse Hx (Audit-C & DAST Scrn) How often the patient has a drink containing alcohol: Never Score: In Men: 4 or > Positive; In Women: 3 or > Positive: 0 Screen Result (Pos requires Nsg. Audit-10AR): Negative In the last yr the pt used illegal drug/Rx for NonMed reason: No Score: Yes response is considered Positive: 0 Screen Result (Positive result requires Nsg. DAST-10): Negative Review of Systems - Review of Systems Comments:: 12/17/19 12:48 - Review of Systems Able to Perform ROS?: Yes Constitutional: No: Fever, Chills, Loss of Appetite, Night Sweats, Weakness HEENTM: No: Eye Pain, Vision changes, Ear Pain, Throat Pain, Throat Swelling, Mouth Pain, Difficulty Swallowing Respiratory: No: Cough, Shortness of Breath, Wheezing, Sputum Production Cardiac (ROS): No: Palpitations, Irregular Heart Beat, Edema; positive: Chest pain ABD/GI: No: Diarrhea; positive: Epigastric abdominal pain, nausea and vomiting : No Dysuria, No Hematuria, No Frequency, No Urgency, No Vaginal Discharge/Pain Musculoskeletal: No: Muscle Pain, Back Pain, Joint Pain, Muscle Weakness, Neck Pain Integumentary: No: Lesions, Rash Neurological: No: Headache, Numbness, Tingling, Weakness, Speech Difficulties *Physical Exam - Vital Signs Last Vital Signs Temp Pulse Resp BP Pulse Ox 97.8 F 72 16 106/58 L 100 12/17/19 12:00 12/17/19 12:00 12/17/19 12:00 12/17/19 12:00 12/17/19 12:00 - Physical Exam 12/17/19 12:49 - Physical Exam General Appearance: Nourished, Appropriately Dressed, No Distress HEENT: EOMI, Normal Voice, Hearing Grossly Normal Neck: Supple, No Lymphadenopathy (R), No Lymphadenopathy (L), No Rigidity, No Decreased range of motion Respiratory/Chest: Lungs Clear, Normal Breath Sounds. No Respiratory Distress, No Accessory Muscle Use Cardiovascular: Regular Rhythm, Regular Rate, S1, S2; reproducible left chest wall tenderness to palpation. No flail chest. No crepitus. Gastrointestinal/Abdominal: Normal Bowel Sounds, Soft. No Guarding, No Rebound, No Rigidity; epigastric abdominal tenderness to palpation. No right or left upper quadrant abdominal tenderness. No CVA tenderness bilaterally. No lobar abdominal tenderness to palpation. Abdomen soft. Musculoskeletal: Normal Inspection. No Decreased Range of Motion Extremity: Normal Capillary Refill, Normal Inspection Integumentary: Normal Color, Dry. No Rash Neurologic: pharmacy helper II-XII NML intact, Fully Oriented, Alert, Normal Mood/Affect, Normal Response ED Treatment Course - LABORATORY CBC & Chemistry Diagram: 12/17/19 12:30 12/17/19 12:30 - Medications Given in the ED: ED Medications Discontinued Medications Generic Name Dose Route Start Last Admin Trade Name Freq PRN Reason Stop Dose Admin Ondansetron HCl 4 mg 12/17/19 12:05 12/17/19 12:33 Zofran Injection IVPUSH 12/17/19 12:06 4 mg ONCE ONE Administration Medical Decision Making - Medical Decision Making 12/17/19 12:50 Assessment: Patient is a 24-year-old female with epigastric abdominal pain and chest wall pain after persistent vomiting for the last 4 days. She has been vomiting roughly 4 times daily. She is 9 weeks gestation. Plan: -Saline lock and 1 L of NS ordered -Zofran ordered by triage provider -Labs ordered -EKG ordered -Will reassess 12/17/19 13:36 Patient is already starting to feel a little bit better. We are still pending a urinalysis on the patient. EKG: Sinus bradycardia at 51 bpm. 12/17/19 14:50 The patient is feeling much better. She has tolerated p.o. fluids in the ED. She has an appointment with her [facility] ORDER[facility] CLINICIAN on 12/31/2019 but I have advised her to call sooner to make an appointment. She understands and agrees with this treatment plan and the patient stable for discharge. Discharge - Discharge Information Problems reviewed: Yes Clinical Impression/Diagnosis: Vomiting Qualifiers: Vomiting type: unspecified Vomiting Intractability: non-intractable Nausea presence: with nausea Qualified Code(s): R11.2 - Nausea with vomiting, unspecified Condition: Stable Disposition: HOME - Follow up/Referral Referrals: Marino Pizarro MD [Primary Care Provider] - 24 hours - Patient Discharge Instructions Patient Printed Discharge Instructions: DI for Atypical Chest Pain, DI for Vomiting -- Adult, DI for Hyperemesis Gravidarum Additional Instructions: Get plenty of rest and drink plenty of fluids. Eat a bland diet for the next several days. Eat small amounts several times daily to help with nausea. Be sure to follow-up with your [facility] ORDER[facility] CLINICIAN within 1 to 2 days for repeat evaluation. Return to the emergency department for any worsening or increased symptoms. - Post Discharge Activity Work/Back to School Note: Back to Work
[2019-12-17] MEDS ORDERED: SODIUM CHLORIDE 0.9% 500 ML INFUS.BAG IV ONE (13:42)
[2019-12-17 13:52] LABS: ALBUMIN 3.5 g/dl (3.4-5.0); ALK PHOS 62 U/L (45-117); ANION GAP 7 MMOL/L (8-16); BILIRUBIN,TOTAL 1.2 mg/dL (0.2-1); BLOOD UREA NITROGEN 11.6 mg/dL (7-18); CALCIUM 8.6 mg/dL (8.5-10.1); CHLORIDE 106 mmol/L (98-107); CO2 24 mmol/L (21-32); CREATININE 0.6 mg/dL (0.55-1.3); GLUCOSE,RANDOM 72 mg/dL (74-106); LIPASE 88 U/L (73-393); POTASSIUM 4.7 mmol/L (3.5-5.1); SGOT/AST 30 U/L (15-37); SGPT/ALT 24 U/L (13-61); SODIUM 137 mmol/L (136-145)
[2019-12-17 14:08] LABS: URINE APPEARANCE CLEAR; URINE BILIRUBIN NEGATIVE (NEGATIVE); URINE COLOR YELLOW; URINE GLUCOSE (UA) NEGATIVE (NEGATIVE); URINE KETONE NEGATIVE (NEGATIVE); URINE LEUK ESTERASE NEGATIVE (NEGATIVE); URINE NITRITE NEGATIVE (NEGATIVE); URINE PROTEIN NEGATIVE (NEGATIVE)
--- NOTE | 2019-12-17 15:15 | EKG ---
Test Reason : Blood Pressure : / mmHG Vent. Rate : 051 BPM Atrial Rate : 051 BPM P-R Int : 168 ms QRS Dur : 102 ms QT Int : 412 ms P-R-T Axes : 043 049 026 degrees QTc Int : 379 ms SINUS BRADYCARDIA WITH SINUS ARRHYTHMIA INCOMPLETE RIGHT BUNDLE BRANCH BLOCK BORDERLINE ECG NO PREVIOUS ECGS AVAILABLE Confirmed by ROXANE FRIAS MD ([id number]) on 12/17/2019 3:15:26 PM Referred By: Confirmed By:ROXANE FRIAS MD
[2019-12-17 15:28] VITALS: BP 117/62; PULSE 67
== END 2019-12-17 15:29 | disposition home or self-care (01) ==
LOC: JER 11:55
PROC: 3E033GC Introduction of Other Therapeutic Substance into Peripheral Vein, Percutaneous Approach (ICD-10-PCS; principal; 2019-12-17)
PROC: 3E033GC Introduction of Other Therapeutic Substance into Peripheral Vein, Percutaneous Approach (ICD-10-PCS; 2019-12-17)
DX: R11.2 Nausea with vomiting, unspecified (principal)
CPT/HCPCS: 36415; 80053; 81003; 82550; 83690; 83735; 84484; 85025; 87086; 93005; 93010; 99284-25

== ENCOUNTER 2020-10-08 22:30 | Emergency (ER) | payer OTHER ==
[2020-10-08 22:46] VITALS: BP 124/54; PULSE 62; TEMP 98.6; BMI 24.5
[2020-10-08 23:37] LABS: BASO % 1.1 % (0-2.0); EOS % 0.5 % (0-4.5); HEMATOCRIT 35.1 % (32.4-45.2); HEMOGLOBIN 11.6 GM/dL (10.7-15.3); LYMPH % 38.5 % (8-40); MCH 27.3 pg (25.7-33.7); MEAN CELL VOLUME 82.8 fl (80-96); MEAN PLT VOLUME 7.8 fl (7.5-11.1); MONO % 6.3 % (3.8-10.2); NEUT % 53.6 % (42.8-82.8); PLATELET COUNT 240 10^3/uL (134-434); RBC 4.24 M/mm3 (3.60-5.2); RDW 20.5 % (11.6-15.6); WHITE BLOOD COUNT 6.8 K/mm3 (4.0-10.0)
[2020-10-08 23:46] LABS: INR 1.06 (0.83-1.09)
[2020-10-08 23:49] LABS: ACTIVATED PTT 35.4 SECONDS (25.2-36.5)
[2020-10-08 23:57] LABS: ALBUMIN 4.1 g/dl (3.4-5.0); BLOOD UREA NITROGEN 11.3 mg/dL (7-18); CALCIUM 8.7 mg/dL (8.5-10.1)
[2020-10-09 00:01] LABS: CREATININE 0.8 mg/dL (0.55-1.3)
[2020-10-09 00:03] LABS: BILIRUBIN,TOTAL 1.6 mg/dL (0.2-1); TOT PROT 7.4 g/dl (6.4-8.2)
[2020-10-09] MEDS ORDERED: ACETAMINOPHEN 1000 MG/100 ML VIAL (NON FORMULARY) IVPB ONE (00:16)
[2020-10-09] MEDS ORDERED: METOCLOPRAMIDE HCL INJECTION 10 MG/2 ML VIAL IVPUSH ONE (00:16)
[2020-10-09] MEDS ORDERED: SODIUM CHLORIDE 0.9% 500 ML INFUS.BAG IV ONE (00:16)
[2020-10-09] MEDS ORDERED: ACETAMINOPHEN INJECTION 100 ML IVPB ONE (00:32)
[2020-10-09] MEDS ORDERED: METOCLOPRAMIDE HCL INJECTION 10 MG/2 ML VIAL ONE (00:32)
[2020-10-09] MEDS ORDERED: ONDANSETRON 4 MG/2 ML VIAL IVPUSH ONE (01:45)
[2020-10-09] MEDS ORDERED: ONDANSETRON 4 MG/2 ML VIAL ONE (01:57)
[2020-10-09 02:28] LABS: EPI CELLS 21 /uL (0-25.1); HYALINE CASTS 2 /uL (0-3.1); URINE APPEARANCE CLEAR; URINE BACTERIA 184 /uL (0-1359); URINE BILIRUBIN NEGATIVE (NEGATIVE); URINE COLOR DK YELLOW; URINE GLUCOSE (UA) NEGATIVE (NEGATIVE); URINE KETONE 1+ (NEGATIVE); URINE LEUK ESTERASE NEGATIVE (NEGATIVE); URINE NITRITE NEGATIVE (NEGATIVE); URINE PROTEIN NEGATIVE (NEGATIVE); URINE RBC 6 /uL (0-23.9); URINE WBC 12 /uL (0-25.8)
[2020-10-09 03:16] LABS: ANISOCYTOSIS 1+; MACROCYTOSIS 1+; PLATELET ESTIMATE NORMAL
== END 2020-10-09 05:31 | disposition home or self-care (01) ==
LOC: JER 22:30
PROC: 3E033GC Introduction of Other Therapeutic Substance into Peripheral Vein, Percutaneous Approach (ICD-10-PCS; principal; 2020-10-08)
DX: O20.0 Threatened abortion (principal); O41.8X10 Other specified disorders of amniotic fluid and membranes, first trimester, not applicable or unspecified; Z3A.01 Less than 8 weeks gestation of pregnancy
CPT/HCPCS: 36415; 76817-TC; 80053; 81003; 84702; 85025; 85610; 85730; 86850; 86900; 86901; 87086; 99284-25; J0131

== ENCOUNTER 2021-03-04 11:13 | Emergency (ER) | payer OTHER ==
[2021-03-04 11:23] VITALS: BP 101/62; PULSE 71; TEMP 98.7; BMI 22.7
[2021-03-04 13:10] LABS: HCG,QUALITATIVE URINE Positive
[2021-03-04 13:14] LABS: EPI CELLS 10 /uL (0-25.1); HYALINE CASTS 1 /uL (0-3.1); PH,URINE 6.5 (5.0-8.0); URINE APPEARANCE CLEAR; URINE BACTERIA 23 /uL (0-1359); URINE BILIRUBIN NEGATIVE (NEGATIVE); URINE COLOR YELLOW; URINE GLUCOSE (UA) NEGATIVE (NEGATIVE); URINE KETONE NEGATIVE (NEGATIVE); URINE LEUK ESTERASE TRACE (NEGATIVE); URINE NITRITE NEGATIVE (NEGATIVE); URINE PROTEIN NEGATIVE (NEGATIVE); URINE RBC 11 /uL (0-23.9); URINE WBC 2 /uL (0-25.8)
[2021-03-04 14:18] LABS: BASO % 0.8 % (0-2.0); EOS % 1.3 % (0-4.5); HEMATOCRIT 37.1 % (32.4-45.2); HEMOGLOBIN 11.8 GM/dL (10.7-15.3); LYMPH % 37.2 % (8-40); MCH 27.6 pg (25.7-33.7); MCHC 31.7 g/dl (32.0-36.0); MEAN CELL VOLUME 87.1 fl (80-96); MEAN PLT VOLUME 8.4 fl (7.5-11.1); MONO % 6.3 % (3.8-10.2); NEUT % 54.4 % (42.8-82.8); PLATELET COUNT 289 10^3/uL (134-434); RBC 4.26 M/mm3 (3.60-5.2); RDW 16.2 % (11.6-15.6)
[2021-03-04 14:47] LABS: ALBUMIN 3.8 g/dl (3.4-5.0); BLOOD UREA NITROGEN 16.4 mg/dL (7-18); CALCIUM 8.7 mg/dL (8.5-10.1)
[2021-03-04 14:51] LABS: CREATININE 0.6 mg/dL (0.55-1.3)
[2021-03-04 14:53] LABS: BILIRUBIN,TOTAL 1.1 mg/dL (0.2-1); TOT PROT 7.4 g/dl (6.4-8.2)
== END 2021-03-04 15:50 | disposition home or self-care (01) ==
LOC: JER 11:13
DX: K59.00 Constipation, unspecified (principal); Z33.1 Pregnant state, incidental
CPT/HCPCS: 36415; 76817-TC; 80053; 81003; 83690; 84702; 84703; 85025; 87086; 99284-25

== ENCOUNTER 2021-06-13 20:58 | Emergency (ER) | payer OTHER ==
[2021-06-13 21:18] VITALS: BMI 22.4
[2021-06-13] MEDS ORDERED: FAMOTIDINE 20 MG/50 ML IVPB 20 MG/50 ML MG IVPB ONE (21:35)
[2021-06-13] MEDS ORDERED: MAG HYDROX/AL HYDROX/SIMETH 30 ML UNIT-DOSE CUP PO ONE (21:35)
[2021-06-13] MEDS ORDERED: ONDANSETRON 4 MG/2 ML VIAL IVPUSH ONE (21:35)
[2021-06-13] MEDS ORDERED: LACTATED RINGERS SOLUTION 1000 ML INFUS.BAG IV ONE (21:35)
[2021-06-13] MEDS ORDERED: ONDANSETRON 4 MG/2 ML VIAL ONE (21:50)
[2021-06-13] MEDS ORDERED: MAG HYDROX/AL HYDROX/SIMETH 30 ML UNIT-DOSE CUP ONE ×2 (21:50→21:57)
[2021-06-13] MEDS ORDERED: FAMOTIDINE 10 MG/ML VIAL IVPB ONE (21:51)
[2021-06-13 22:24] LABS: BASO % 0.9 % (0-2.0); EOS % 0.6 % (0-4.5); HEMATOCRIT 38.6 % (32.4-45.2); HEMOGLOBIN 12.8 GM/dL (10.7-15.3); LYMPH % 35.5 % (8-40); MCH 28.8 pg (25.7-33.7); MCHC 33.1 g/dl (32.0-36.0); MEAN CELL VOLUME 86.8 fl (80-96); MEAN PLT VOLUME 7.5 fl (7.5-11.1); MONO % 7.5 % (3.8-10.2); NEUT % 55.5 % (42.8-82.8); PLATELET COUNT 326 10^3/uL (134-434); RBC 4.44 M/mm3 (3.60-5.2); RDW 15.1 % (11.6-15.6); WHITE BLOOD COUNT 7.6 K/mm3 (4.0-10.0)
[2021-06-13 23:02] LABS: CALCIUM 9.1 mg/dL (8.5-10.1)
[2021-06-13 23:03] LABS: ALBUMIN 4.2 g/dl (3.4-5.0); BLOOD UREA NITROGEN 12.5 mg/dL (7-18)
[2021-06-13 23:06] LABS: CREATININE 0.7 mg/dL (0.55-1.3)
[2021-06-13 23:08] LABS: BILIRUBIN,TOTAL 1.5 mg/dL (0.2-1); TOT PROT 7.9 g/dl (6.4-8.2)
[2021-06-14] MEDS ORDERED: METOCLOPRAMIDE HCL INJECTION 10 MG/2 ML VIAL IVPUSH ONE (01:17)
[2021-06-14] MEDS ORDERED: METOCLOPRAMIDE HCL INJECTION 10 MG/2 ML VIAL ONE (01:18)
[2021-06-14 01:28] VITALS: BP 120/72; PULSE 66; TEMP 98
== END 2021-06-14 02:56 | disposition home or self-care (01) ==
LOC: JER 20:58
PROC: 3E033GC Introduction of Other Therapeutic Substance into Peripheral Vein, Percutaneous Approach (ICD-10-PCS; principal; 2021-06-13)
PROC: 3E033GC Introduction of Other Therapeutic Substance into Peripheral Vein, Percutaneous Approach (ICD-10-PCS; 2021-06-13)
PROC: 3E033GC Introduction of Other Therapeutic Substance into Peripheral Vein, Percutaneous Approach (ICD-10-PCS; 2021-06-13)
DX: R10.9 Unspecified abdominal pain (principal)
CPT/HCPCS: 36415; 76817-TC; 80053; 84702; 84703; 85025; 99284-25

== ENCOUNTER 2022-02-08 19:28 | Emergency (ER) | payer OTHER ==
[2022-02-08 19:36] VITALS: BP 99/66; PULSE 68; RESP 17; TEMP 97.9; BMI 23.5
== END 2022-02-08 22:20 | disposition left against medical advice (07) ==
LOC: JER 19:28
DX: R10.9 Unspecified abdominal pain (principal)
CPT/HCPCS: 99281-25

== ENCOUNTER 2022-02-20 04:41 | Emergency (ER) | payer OTHER ==
[2022-02-20 04:51] VITALS: BP 119/76; PULSE 81; RESP 18; TEMP 98.7; BMI 23.0
[2022-02-20] MEDS ORDERED: ACETAMINOPHEN 500 MG TABLET (FP) PO ONE (06:05)
[2022-02-20] MEDS ORDERED: ACETAMINOPHEN 325 MG TABLET (FP) ONE (06:07)
[2022-02-20 07:02] LABS: BASO % 0.6 % (0-2.0); EOS % 1.8 % (0-4.5); HEMATOCRIT 39.8 % (32.4-45.2); HEMOGLOBIN 12.9 GM/dL (10.7-15.3); LYMPH % 38.5 % (8-40); MCH 29.1 pg (25.7-33.7); MCHC 32.6 g/dl (32.0-36.0); MEAN CELL VOLUME 89.3 fl (80-96); MEAN PLT VOLUME 8.2 fl (7.5-11.1); MONO % 6.4 % (3.8-10.2); NEUT % 52.7 % (42.8-82.8); PLATELET COUNT 256 10^3/uL (134-434); RBC 4.46 M/mm3 (3.60-5.2); RDW 14.9 % (11.6-15.6); WHITE BLOOD COUNT 6.8 K/mm3 (4.0-10.0)
[2022-02-20 07:33] LABS: CALCIUM 8.8 mg/dL (8.5-10.1)
[2022-02-20 07:34] LABS: ALBUMIN 4.2 g/dl (3.4-5.0); BLOOD UREA NITROGEN 11.6 mg/dL (7-18)
[2022-02-20 07:37] LABS: CREATININE 0.6 mg/dL (0.55-1.3)
[2022-02-20 07:39] LABS: BILIRUBIN,TOTAL 0.6 mg/dL (0.2-1); TOT PROT 7.6 g/dl (6.4-8.2)
[2022-02-20 08:19] LABS: EPI CELLS 23 /uL (0-25.1); HYALINE CASTS 1 /uL (0-3.1); PH,URINE 6.5 (5.0-8.0); URINE APPEARANCE CLEAR; URINE BACTERIA 524 /uL (0-1359); URINE BILIRUBIN NEGATIVE (NEGATIVE); URINE COLOR YELLOW; URINE GLUCOSE (UA) NEGATIVE (NEGATIVE); URINE KETONE TRACE (NEGATIVE); URINE LEUK ESTERASE NEGATIVE (NEGATIVE); URINE NITRITE NEGATIVE (NEGATIVE); URINE PROTEIN NEGATIVE (NEGATIVE); URINE RBC 51 /uL (0-23.9); URINE WBC 13 /uL (0-25.8)
[2022-02-20] MEDS ORDERED: AMOXICILLIN 500 MG CAPSULE (FP) ONE (08:55)
[2022-02-20] MEDS: AMOXICILLIN 500 MG CAPSULE (FP) PO ONE ×2 (09:00)
== END 2022-02-20 10:28 | disposition left against medical advice (07) ==
LOC: JER 04:41
DX: O20.9 Hemorrhage in early pregnancy, unspecified (principal); Z3A.00 Weeks of gestation of pregnancy not specified
CPT/HCPCS: 36415; 76817-TC; 80053; 81003; 84702; 84703; 85025; 86850; 86900; 86901; 87491; 87591; 99284-25

== ENCOUNTER 2022-05-30 03:37 | Emergency (ER) | payer OTHER ==
[2022-05-30 03:46] VITALS: BMI 25.2
[2022-05-30 05:06] VITALS: BP 114/67; PULSE 81; RESP 17
[2022-05-30 05:12] VITALS: TEMP 98.1
[2022-05-30 05:17] LABS: BASO % 0.4 % (0-2.0); EOS % 0.8 % (0-4.5); HEMATOCRIT 29.5 % (32.4-45.2); HEMOGLOBIN 10.4 GM/dL (10.7-15.3); LYMPH % 23.3 % (8-40); MCH 31.1 pg (25.7-33.7); MCHC 35.2 g/dl (32.0-36.0); MEAN CELL VOLUME 88.3 fl (80-96); MEAN PLT VOLUME 8.5 fl (7.5-11.1); MONO % 6.9 % (3.8-10.2); NEUT % 68.6 % (42.8-82.8); PLATELET COUNT 232 10^3/uL (134-434); RBC 3.34 M/mm3 (3.60-5.2); RDW 13.6 % (11.6-15.6); WHITE BLOOD COUNT 9.4 K/mm3 (4.0-10.0)
[2022-05-30 05:30] LABS: INR 0.99 (0.83-1.09); PROTHROMBIN TIME (PATIENT) 11.5 SEC (9.7-13.0)
[2022-05-30 05:33] LABS: ACTIVATED PTT 30.2 SECONDS (25.2-36.5)
[2022-05-30] MEDS ORDERED: ACETAMINOPHEN 325 MG TABLET (FP) PO ONE (09:00)
[2022-05-30] MEDS ORDERED: ACETAMINOPHEN 325 MG TABLET (FP) ONE (09:08)
== END 2022-05-30 10:30 | disposition home or self-care (01) ==
LOC: JER 03:37
DX: O9A.212 Injury, poisoning and certain other consequences of external causes complicating pregnancy, second trimester (principal); S39.91XA Unspecified injury of abdomen, initial encounter; W01.198A Fall on same level from slipping, tripping and stumbling with subsequent striking against other object, initial encounter; Z3A.21 21 weeks gestation of pregnancy
CPT/HCPCS: 36415; 76801-TC; 85025; 85610; 85730; 86850; 86900; 86901; 99285-25

== ENCOUNTER 2022-06-17 12:34 | Inpatient (IN) | payer OTHER ==
[2022-06-17] MEDS ORDERED: SODIUM CHLORIDE 0.9% 500 ML INFUS.BAG IV ONE ×2 (13:18→17:30)
[2022-06-17] MEDS ORDERED: ACETAMINOPHEN 1000 MG/100 ML BAG IVPB ONE (13:18)
[2022-06-17] MEDS ORDERED: ACETAMINOPHEN INJECTION 100 ML IVPB ONE (13:24)
[2022-06-17 13:51] LABS: HEMATOCRIT 30.2 % (32.4-45.2); HEMOGLOBIN 9.9 GM/dL (10.7-15.3); LYMPH % 32.1 % (8-40); MCH 29.4 pg (25.7-33.7); MCHC 32.8 g/dl (32.0-36.0); MEAN CELL VOLUME 89.5 fl (80-96); MEAN PLT VOLUME 7.8 fl (7.5-11.1); MONO % 9.4 % (3.8-10.2); NEUT % 55.5 % (42.8-82.8); PLATELET COUNT 306 10^3/uL (134-434); RBC 3.38 M/mm3 (3.60-5.2); RDW 14.1 % (11.6-15.6); WHITE BLOOD COUNT 4.3 K/mm3 (4.0-10.0)
[2022-06-17 13:53] LABS: EPI CELLS 9 /uL (0-25.1); HYALINE CASTS 0 /uL (0-3.1); PH,URINE 8.5 (5.0-8.0); URINE APPEARANCE CLEAR; URINE BACTERIA 7 /uL (0-1359); URINE BILIRUBIN NEGATIVE (NEGATIVE); URINE COLOR YELLOW; URINE GLUCOSE (UA) NEGATIVE (NEGATIVE); URINE KETONE NEGATIVE (NEGATIVE); URINE LEUK ESTERASE TRACE (NEGATIVE); URINE NITRITE NEGATIVE (NEGATIVE); URINE PROTEIN NEGATIVE (NEGATIVE); URINE RBC 94 /uL (0-23.9); URINE UROBILINOGEN 0.2 mg/dL (0.2-1.0); URINE WBC 16 /uL (0-25.8)
[2022-06-17 13:57] LABS: HCG,QUALITATIVE URINE Positive
[2022-06-17 14:01] LABS: INR 1.02 (0.83-1.09); PROTHROMBIN TIME (PATIENT) 11.8 SEC (9.7-13.0)
[2022-06-17 14:18] LABS: POTASSIUM 4.4 mmol/L (3.5-5.1)
[2022-06-17 14:19] LABS: ALBUMIN 2.9 g/dl (3.4-5.0); BLOOD UREA NITROGEN 10.6 mg/dL (7-18); CALCIUM 8.5 mg/dL (8.5-10.1)
[2022-06-17 14:23] LABS: CREATININE 0.7 mg/dL (0.55-1.3)
[2022-06-17 14:24] LABS: BILIRUBIN,TOTAL 0.5 mg/dL (0.2-1); TOT PROT 6.9 g/dl (6.4-8.2)
[2022-06-17] MEDS ORDERED: morphine CARPU-JECT 4 MG/1 ML DISP.SYRIN IVPUSH ONE (17:23)
[2022-06-17] MEDS ORDERED: morphine SULFATE 4 MG/ML VIAL ONE (17:29)
[2022-06-17] MEDS ORDERED: TRIMETHOBENZAMIDE HCL 200MG/2ML INJ IM PRN (19:09)
[2022-06-17] MEDS ORDERED: DEXTROSE 5%-LACTATED RINGERS 1,000 ML IV SCH ×2 (19:15→23:46)
[2022-06-17 21:10] LABS: RETICULOCYTES 2.94 % (0.5-1.5)
[2022-06-17] MEDS: ACETAMINOPHEN 1000 MG/100 ML BAG IVPB PRN (21:45)
[2022-06-17] MEDS ORDERED: ATROPINE SULFATE 1 MG/10 ML DISP.SYRIN IVPUSH ONE (22:41)
[2022-06-18] LABS: URINE APPEARANCE CLEAR; URINE BILIRUBIN NEGATIVE (NEGATIVE); URINE COLOR YELLOW; URINE GLUCOSE (UA) NEGATIVE (NEGATIVE); URINE KETONE NEGATIVE (NEGATIVE); URINE LEUK ESTERASE NEGATIVE (NEGATIVE); URINE NITRITE NEGATIVE (NEGATIVE); URINE PROTEIN NEGATIVE (NEGATIVE); URINE UROBILINOGEN 0.2 mg/dL (0.2-1.0)
[2022-06-18 00:46] LABS: COCAINE, UR NEGATIVE (NEGATIVE); METHADONE, UR NEGATIVE (NEGATIVE); OPIATES, URI NEGATIVE (NEGATIVE); PHENCYCLIDINE,URINE NEGATIVE (NEGATIVE); URINE AMPHETAMINES NEGATIVE (NEGATIVE); URINE BARBITURATES NEGATIVE (NEGATIVE); URINE BENZODIAZEPINES NEGATIVE (NEGATIVE)
[2022-06-18 00:56] LABS: BASO % 1.1 % (0-2.0); EOS % 2.4 % (0-4.5); HEMATOCRIT 31.2 % (32.4-45.2); HEMOGLOBIN 10.3 GM/dL (10.7-15.3); LYMPH % 44.7 % (8-40); MCHC 32.9 g/dl (32.0-36.0); MEAN CELL VOLUME 88.2 fl (80-96); MEAN PLT VOLUME 7.8 fl (7.5-11.1); MONO % 9.4 % (3.8-10.2); NEUT % 42.4 % (42.8-82.8); PLATELET COUNT 320 10^3/uL (134-434); RBC 3.54 M/mm3 (3.60-5.2); RDW 13.8 % (11.6-15.6)
[2022-06-18 01:18] VITALS: BMI 25.1
[2022-06-18 01:18] LABS: BLOOD UREA NITROGEN 7.5 mg/dL (7-18); CALCIUM 8.6 mg/dL (8.5-10.1)
[2022-06-18 01:19] LABS: ALBUMIN 3.1 g/dl (3.4-5.0)
[2022-06-18 01:22] LABS: CREATININE 0.6 mg/dL (0.55-1.3); PHOSPHOROUS 2.4 mg/dL (2.5-4.9)
[2022-06-18 01:23] LABS: BILIRUBIN,TOTAL 0.8 mg/dL (0.2-1); TOT PROT 7.2 g/dl (6.4-8.2)
[2022-06-18] MEDS: ACETAMINOPHEN 1000 MG/100 ML BAG IVPB PRN ×3 (04:14→23:01)
[2022-06-18 07:14] LABS: BASO % 1.2 % (0-2.0); EOS % 3.2 % (0-4.5); HEMATOCRIT 26.6 % (32.4-45.2); LYMPH % 44.9 % (8-40); MCH 29.8 pg (25.7-33.7); MCHC 33.8 g/dl (32.0-36.0); MEAN CELL VOLUME 88.1 fl (80-96); MEAN PLT VOLUME 7.5 fl (7.5-11.1); MONO % 12.1 % (3.8-10.2); NEUT % 38.6 % (42.8-82.8); PLATELET COUNT 266 10^3/uL (134-434); RBC 3.01 M/mm3 (3.60-5.2); RDW 13.8 % (11.6-15.6); WHITE BLOOD COUNT 4.4 K/mm3 (4.0-10.0)
[2022-06-18] MEDS ORDERED: SODIUM CHLORIDE 1,000 ML IV SCH (09:45)
[2022-06-18] MEDS: SODIUM CHLORIDE 1,000 ML IV SCH (16:21)
[2022-06-18] MEDS ORDERED: IRON SUCROSE INJECTION 200 MG in SODIUM CHLORIDE 90 ML IVPB ONE (19:30)
[2022-06-19] MEDS: ACETAMINOPHEN 1000 MG/100 ML BAG IVPB PRN (05:46)
[2022-06-19 08:19] LABS: HEMATOCRIT 26.8 % (32.4-45.2); HEMOGLOBIN 9.1 GM/dL (10.7-15.3); MCH 30.1 pg (25.7-33.7); MCHC 34.2 g/dl (32.0-36.0); MEAN CELL VOLUME 88.2 fl (80-96); MEAN PLT VOLUME 8.3 fl (7.5-11.1); PLATELET COUNT 301 10^3/uL (134-434); RBC 3.03 M/mm3 (3.60-5.2); RDW 13.7 % (11.6-15.6); WHITE BLOOD COUNT 4.9 K/mm3 (4.0-10.0)
[2022-06-19 08:29] LABS: POTASSIUM 3.9 mmol/L (3.5-5.1)
[2022-06-19 08:35] LABS: ALBUMIN 2.6 g/dl (3.4-5.0); BLOOD UREA NITROGEN 8.4 mg/dL (7-18); MAGNESIUM 1.9 mg/dL (1.8-2.4)
[2022-06-19 08:38] LABS: PHOSPHOROUS 2.9 mg/dL (2.5-4.9)
[2022-06-19 08:39] LABS: CREATININE 0.6 mg/dL (0.55-1.3)
[2022-06-19 08:40] LABS: BILIRUBIN,TOTAL 0.5 mg/dL (0.2-1); TOT PROT 5.9 g/dl (6.4-8.2)
[2022-06-19] MEDS ORDERED: IRON SUCROSE INJECTION 100 MG in SODIUM CHLORIDE 95 ML IVPB ONE (12:00)
[2022-06-19] MEDS: SODIUM CHLORIDE 1,000 ML IV SCH ×2 (12:43→16:35)
[2022-06-19] MEDS ORDERED: ACETAMINOPHEN 1000 MG/100 ML BAG IVPB PRN (14:57)
[2022-06-19] MEDS ORDERED: TRIMETHOBENZAMIDE HCL 200MG/2ML INJ IM PRN (14:57)
[2022-06-20] MEDS: SODIUM CHLORIDE 1,000 ML IV SCH (07:20)
[2022-06-20 07:57] LABS: HEMATOCRIT 29.8 % (32.4-45.2); MCH 29.3 pg (25.7-33.7); MCHC 33.5 g/dl (32.0-36.0); MEAN CELL VOLUME 87.4 fl (80-96); MEAN PLT VOLUME 7.4 fl (7.5-11.1); PLATELET COUNT 351 10^3/uL (134-434); RBC 3.41 M/mm3 (3.60-5.2); RDW 13.7 % (11.6-15.6); WHITE BLOOD COUNT 6.2 K/mm3 (4.0-10.0)
[2022-06-20 08:20] LABS: BLOOD UREA NITROGEN 11.7 mg/dL (7-18); CALCIUM 8.4 mg/dL (8.5-10.1); MAGNESIUM 1.8 mg/dL (1.8-2.4)
[2022-06-20 08:21] LABS: ALBUMIN 2.6 g/dl (3.4-5.0)
[2022-06-20 08:24] LABS: CREATININE 0.6 mg/dL (0.55-1.3); PHOSPHOROUS 3.7 mg/dL (2.5-4.9)
[2022-06-20 08:25] LABS: BILIRUBIN,TOTAL 0.3 mg/dL (0.2-1); TOT PROT 6.1 g/dl (6.4-8.2)
[2022-06-20] MEDS ORDERED: IRON SUCROSE INJECTION 100 MG in SODIUM CHLORIDE 95 ML IVPB ONE (09:00)
[2022-06-20 10:10] VITALS: BP 132/70; PULSE 55; RESP 20; TEMP 98.2
== END 2022-06-20 10:15 | disposition home or self-care (01) | DRG 813 ==
LOC: JERFT 12:34 → JER 12:34 → JERBED 19:06 → J4W 21:36 → J6S 06-19 14:58
PROVIDERS: ADMIT Internal Medicine; ATTEND Internal Medicine
DX: T88.8XXA Other specified complications of surgical and medical care, not elsewhere classified, initial encounter (principal); K81.0 Acute cholecystitis; O73.1 Retained portions of placenta and membranes, without hemorrhage; R00.1 Bradycardia, unspecified; R00.0 Tachycardia, unspecified; R14.0 Abdominal distension (gaseous); D50.9 Iron deficiency anemia, unspecified; R51.9 Headache, unspecified; R10.11 Right upper quadrant pain; Y84.8 Other medical procedures as the cause of abnormal reaction of the patient, or of later complication, without mention of misadventure at the time of the procedure
CPT/HCPCS: 36415; 71046-TC-FY; 76705-TC; 76856-TC; 80053; 80307; 81003; 82728; 83540; 83550; 83690; 83735; 84100; 84439; 84443; 84484; 84702; 84703; 85025; 85027; 85045; 85610; 85730; 86850; 86900; 86901; 87086; 93005; 93010; 93306-TC; 94010; 99285-25; C9803-CS; J1756; U0003; U0005

== ENCOUNTER 2022-09-16 16:13 | Emergency (ER) | payer OTHER ==
[2022-09-16 16:17] VITALS: BP 101/66; PULSE 73; RESP 18; TEMP 98.4; BMI 23.7
[2022-09-16] MEDS ORDERED: ACETAMINOPHEN 500 MG TABLET (FP) PO ONE (17:22)
[2022-09-16] MEDS ORDERED: ACETAMINOPHEN 500 MG TABLET (FP) ONE (17:43)
[2022-09-16 18:01] LABS: BASO % 0.6 % (0-2.0); EOS % 0.8 % (0-4.5); HEMATOCRIT 35.3 % (32.4-45.2); HEMOGLOBIN 11.5 GM/dL (10.7-15.3); LYMPH % 28.6 % (8-40); MCH 27.2 pg (25.7-33.7); MCHC 32.6 g/dl (32.0-36.0); MEAN CELL VOLUME 83.5 fl (80-96); MEAN PLT VOLUME 7.9 fl (7.5-11.1); MONO % 6.1 % (3.8-10.2); NEUT % 63.9 % (42.8-82.8); PLATELET COUNT 231 10^3/uL (134-434); RBC 4.22 M/mm3 (3.60-5.2); RDW 18.1 % (11.6-15.6); WHITE BLOOD COUNT 7.1 K/mm3 (4.0-10.0)
[2022-09-16 18:33] LABS: POTASSIUM 3.8 mmol/L (3.5-5.1)
[2022-09-16 18:35] LABS: CALCIUM 8.9 mg/dL (8.5-10.1)
[2022-09-16 18:36] LABS: ALBUMIN 3.6 g/dl (3.4-5.0); BLOOD UREA NITROGEN 13.7 mg/dL (7-18)
[2022-09-16 18:39] LABS: CREATININE 0.6 mg/dL (0.55-1.3)
[2022-09-16 18:40] LABS: TOT PROT 6.8 g/dl (6.4-8.2)
[2022-09-16 18:41] LABS: BILIRUBIN,TOTAL 1.4 mg/dL (0.2-1)
[2022-09-16 21:32] LABS: EPI CELLS 8 /uL (0-25.1); HYALINE CASTS 0 /uL (0-3.1); URINE APPEARANCE CLEAR; URINE BACTERIA 12 /uL (0-1359); URINE BILIRUBIN NEGATIVE (NEGATIVE); URINE COLOR YELLOW; URINE GLUCOSE (UA) NEGATIVE (NEGATIVE); URINE KETONE NEGATIVE (NEGATIVE); URINE LEUK ESTERASE NEGATIVE (NEGATIVE); URINE NITRITE NEGATIVE (NEGATIVE); URINE PROTEIN NEGATIVE (NEGATIVE); URINE RBC 191 /uL (0-23.9); URINE WBC 5 /uL (0-25.8)
== END 2022-09-16 20:58 | disposition home or self-care (01) ==
LOC: JER 16:13
DX: O20.0 Threatened abortion (principal); O26.891 Other specified pregnancy related conditions, first trimester; R10.9 Unspecified abdominal pain; Z3A.08 8 weeks gestation of pregnancy
CPT/HCPCS: 36415; 76817-TC; 80053; 81003; 84702; 85025; 86850; 86900; 86901; 87086; 99284-25

== ENCOUNTER 2022-09-18 10:38 | Emergency (ER) | payer OTHER ==
[2022-09-18 10:50] VITALS: BP 92/58; PULSE 68; RESP 18; TEMP 98.3; BMI 23.1
[2022-09-18 11:17] LABS: BASO % 0.5 % (0-2.0); EOS % 0.9 % (0-4.5); HEMATOCRIT 34.8 % (32.4-45.2); HEMOGLOBIN 11.4 GM/dL (10.7-15.3); LYMPH % 35.8 % (8-40); MCH 27.4 pg (25.7-33.7); MCHC 32.8 g/dl (32.0-36.0); MEAN CELL VOLUME 83.5 fl (80-96); MEAN PLT VOLUME 7.6 fl (7.5-11.1); MONO % 6.5 % (3.8-10.2); NEUT % 56.3 % (42.8-82.8); PLATELET COUNT 237 10^3/uL (134-434); RBC 4.17 M/mm3 (3.60-5.2); RDW 18.2 % (11.6-15.6); WHITE BLOOD COUNT 6.3 K/mm3 (4.0-10.0)
== END 2022-09-18 12:33 | disposition home or self-care (01) ==
LOC: JERFT 10:38
DX: O20.9 Hemorrhage in early pregnancy, unspecified (principal); Z3A.00 Weeks of gestation of pregnancy not specified
CPT/HCPCS: 36415; 84702; 85025; 99283-25

== ENCOUNTER 2023-02-01 22:18 | Emergency (ER) | payer OTHER ==
[2023-02-01 22:44] VITALS: BMI 26.7
[2023-02-01] MEDS ORDERED: ACETAMINOPHEN 1000 MG/100 ML BAG IVPB ONE (23:33)
[2023-02-01] MEDS ORDERED: SODIUM CHLORIDE 1,000 ML IV STA (23:34)
[2023-02-01] MEDS ORDERED: ACETAMINOPHEN INJECTION 100 ML IVPB ONE (23:41)
[2023-02-02 00:12] LABS: BASO % 0.4 % (0-2.0); EOS % 0.6 % (0-4.5); HEMATOCRIT 27.9 % (32.4-45.2); HEMOGLOBIN 9.1 GM/dL (10.7-15.3); LYMPH % 20.3 % (8-40); MCHC 32.5 g/dl (32.0-36.0); MEAN CELL VOLUME 86.3 fl (80-96); MEAN PLT VOLUME 7.5 fl (7.5-11.1); MONO % 6.2 % (3.8-10.2); NEUT % 72.5 % (42.8-82.8); PLATELET COUNT 239 10^3/uL (134-434); RBC 3.23 M/mm3 (3.60-5.2); RDW 14.6 % (11.6-15.6); WHITE BLOOD COUNT 10.4 K/mm3 (4.0-10.0)
[2023-02-02 00:31] LABS: POTASSIUM 3.6 mmol/L (3.5-5.1)
[2023-02-02 00:35] LABS: ALBUMIN 2.6 g/dl (3.4-5.0); CALCIUM 8.2 mg/dL (8.5-10.1)
[2023-02-02 00:36] LABS: BLOOD UREA NITROGEN 11.4 mg/dL (7-18)
[2023-02-02 00:38] LABS: CREATININE 0.6 mg/dL (0.55-1.3)
[2023-02-02 00:40] LABS: BILIRUBIN,TOTAL 1.1 mg/dL (0.2-1); TOT PROT 6.1 g/dl (6.4-8.2)
[2023-02-02 00:49] LABS: URINE APPEARANCE CLEAR; URINE BILIRUBIN NEGATIVE (NEGATIVE); URINE COLOR DK YELLOW; URINE GLUCOSE (UA) NEGATIVE (NEGATIVE); URINE KETONE TRACE (NEGATIVE); URINE LEUK ESTERASE NEGATIVE (NEGATIVE); URINE NITRITE NEGATIVE (NEGATIVE); URINE PROTEIN NEGATIVE (NEGATIVE)
[2023-02-02] MEDS ORDERED: ONDANSETRON 4 MG/2 ML VIAL IVPB ONE (01:49)
[2023-02-02] MEDS ORDERED: ONDANSETRON 4 MG/2 ML VIAL ONE (02:28)
[2023-02-02 04:23] VITALS: RESP 18
[2023-02-02] MEDS ORDERED: METOCLOPRAMIDE HCL INJECTION 10 MG/2 ML VIAL IVPB ONE (07:23)
[2023-02-02] MEDS ORDERED: SODIUM CHLORIDE 0.9% 500 ML INFUS.BAG IV ONE ×2 (07:23→11:58)
[2023-02-02 10:50] VITALS: TEMP 98.3
[2023-02-02 13:38] VITALS: BP 93/57; PULSE 88
== END 2023-02-02 13:44 | disposition home or self-care (01) ==
LOC: JER 22:18 → JERBED 02-02 03:25 → UNDOADMIN 02-02 03:25 → JER 02-02 13:44
PROC: 3E033NZ Introduction of Analgesics, Hypnotics, Sedatives into Peripheral Vein, Percutaneous Approach (ICD-10-PCS; principal; 2023-02-01)
PROC: 3E033GC Introduction of Other Therapeutic Substance into Peripheral Vein, Percutaneous Approach (ICD-10-PCS; 2023-02-02)
DX: R10.11 Right upper quadrant pain (principal); R11.2 Nausea with vomiting, unspecified; R51.9 Headache, unspecified; R19.7 Diarrhea, unspecified; Z20.822 Contact with and (suspected) exposure to COVID-19
CPT/HCPCS: 0241U-QW; 36415; 76705-TC; 80053; 81003; 83690; 85025; 93005; 93010; 99285-25